=== PATIENT | female | born 1950 | race Caucasian/White ===

== ENCOUNTER 2017-05-17 09:44 | Emergency (ER) | payer OTHER ==
--- NOTE | 2017-05-17 11:24 | ED Physician Documentation ---
PD HPI Fall - Stated complaint Stated Complaint: GLF - Chief complaint Chief Complaint: General - History obtained from History obtained from: Patient - History of Present Illness Mechanism of injury: Tripped Fall distance: Standing position Where injury occurred: Home Timing - onset: Today Injury(ies) location: Head, Neck, Right Upper Extremity, Right Lower Extremity, Left Lower Extremity Quality of pain: Pain Associated symptoms: Neck pain. No: LOC, AMS, Amnesia, Seizures, Ear drainage, Nasal drainage, Weakness, Paresthesias, Dyspnea, Nausea / vomiting, Hematemesis Symptoms improve with: Rest Worsens with: Movement, Palpation Contributing factors: No: Anticoagulated Similar symptoms before: Has not had sx before Recently seen: Not recently seen - Additional information Additional information: 66-year-old female with history of rheumatoid arthritis was walking in her driveway where they are installing some pavers in sand. She stepped on 1 of these pavers and lost her balance shooting herself forward and she landed with her head up against a step she abraded her knees she braced her fall with her outstretched hands and now complains of pain in the vertex of the head and in the right side of her neck. Pain goes from the neck into the right shoulder she has abrasions to the knees and does not feel the shoulder itself is injured. Review of Systems Constitutional: denies: Fever Eyes: denies: Loss of vision, Decreased vision, Photophobia Ears: denies: Ear pain Nose: denies: Rhinorrhea / runny nose, Congestion Throat: denies: Sore throat Cardiac: denies: Chest pain / pressure, Palpitations Respiratory: denies: Dyspnea, Cough GI: denies: Abdominal Pain, Nausea, Vomiting : denies: Dysuria, Frequency Skin: reports: Abrasion (s). denies: Rash Musculoskeletal: reports: Neck pain, Extremity pain, Extremity swelling. 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: Other : Kidney stones Psych: Anxiety Musculoskeletal: Rheumatoid arthritis Other Past Medical History: "fatty liver" "liver cyst" - Past Surgical History Past Surgical History: Yes /PASSENGER VESSEL CHEF: Dilation and currettage - Present Medications Home Medications: Ambulatory Orders Medication Instructions Recorded Confirmed Albuterol Sulfate [Proventil Hfa 1 puffs INH DAILY PRN 04/06/16 04/06/16 Inhaler] Adalimumab [Humira] 10 mg ORAL ONCE 05/17/17 05/17/17 Cyclobenzaprine [Flexeril] 10 mg PO TID PRN #20 tablet 05/17/17 HYDROcod/ACETAM 5/325 [[place] 5/325] 1 - 2 ea PO Q6H PRN #15 tablet 05/17/17 Prednisone 10 mg ORAL [id number] 05/17/17 05/17/17 azaTHIOprine [Imuran] 50 mg ORAL BID 05/17/17 05/17/17 - Allergies Allergies/Adverse Reactions: Allergies Allergy/AdvReac Type Severity Reaction Status Date / Time Penicillins Allergy Hives Verified 04/06/16 19:51 - Social History Does the pt smoke?: No Smoking Status: Never smoker Does the pt drink ETOH?: No Does the pt have substance abuse?: No - Immunizations Immunizations are current?: Yes - POLST Patient has POLST: No PD ED PE NORMAL - Vitals Vital signs reviewed: Yes (Tachycardic and hypertensive) - General General: Alert and oriented X 3, No acute distress, Well developed/nourished - HEENT HEENT: Atraumatic, PERRL, EOMI - Neck Neck: Supple, no meningeal sign, Other (The patient has pain along the right paraspinous muscles and does not have midline pain to the cervical spine. She is able flex and extend the neck she has pain to rotate the neck to the right. Pain extends from C2 to the supraspinatus.) - Cardiac Cardiac: RRR, No murmur - Respiratory Respiratory: No respiratory distress, Clear bilaterally - Abdomen Abdomen: Soft, Non tender - Back Back: No CVA TTP, No spinal TTP Results - Vitals Vitals: Vital Signs - 24 hr 05/17/17 05/17/17 09:52 11:59 Temperature 37 C Heart Rate 110 H 102 H Respiratory 18 16 Rate Blood Pressure 149/84 H 159/101 H O2 Saturation 99 96 Oxygen O2 Source Room air - Rads (name of study) cervical spine Radiology: Prelim report reviewed (Impression: 1. No acute cervical spine fracture or spondylolisthesis identified. Straightening of cervical lordosis.2. Multilevel degenerative changes most notably at C5-C6 and C6-C7. Additionally, there is bony fusion at the right-sided C4-C5 facet.3. Partially visualized lung apices with small amount of irregular linear opacity, which may represent scarring.), EMP read indepedently, See rad report PD MEDICAL DECISION MAKING - ED course Complexity details: reviewed old records, reviewed results, re-evaluated patient , considered differential, d/w patient ED course: 66-year-old female with a history of rheumatoid arthritis is fallen and struck the top of her head and strained her neck. She is abraded her knees as well but is able to walk without difficulty and has a normal exam of the knees. Departure - Departure Disposition: 01 Home, Self Care Clinical Impression: Cervical strain, acute Qualifiers: Encounter type: initial encounter Qualified Code(s): S16.1XXA - Strain of muscle, fascia and tendon at neck level, initial encounter Condition: Stable Instructions: ED Sprain Strain Neck Follow-Up: NICOLE VELÁZQUEZ [Primary Care Provider] - Prescriptions: Cyclobenzaprine [Flexeril] 10 mg PO TID PRN #20 tablet PRN Reason: Spasms HYDROcod/ACETAM 5/325 [[place] 5/325] 1 - 2 ea PO Q6H PRN #15 tablet PRN Reason: Pain
[2017-05-17 12:00] VITALS: BP 159/101
--- NOTE | 2017-05-17 12:14 | CT Preliminary Report ---
Exam: CT Cervical Spine W/O IMPRESSION: 1. No acute cervical spine fracture or spondylolisthesis identified. Straightening of the cervical lo rdosis. 2. Multilevel degenerative changes, most notably at C5-C6 and C6-C7. Additionally, there is bony fusi on at the right-sided C4-C5 facet. 3. Partially visualized lung apices with small amount of irregular linear opacity, which may reflect scarring. [facility] SITE ID: [id number]
--- NOTE | 2017-05-17 12:17 | CT Report ---
EXAM: CT CERVICAL SPINE WITHOUT CONTRAST DATE: 05/17/2017 11:54 AM HISTORY: Fall vertex contusion right sided pain . COMPARISONS: None. TECHNIQUE: Thin-section axial images were acquired of the cervical spine without contrast. Post-proce ssing: Coronal and sagittal reformats. Other: None. In accordance with CT protocol optimization, one or more of the following dose reduction techniques w ere utilized for this exam: automated exposure control, adjustment of mA and/or KV based on patient s ize, or use of iterative reconstructive technique. FINDINGS: Alignment: Straightening of the cervical lordosis. No spondylolisthesis. Bones: No acute fracture or focal osseous destruction identified. Interspace Levels/Facets: Multilevel degenerative change, including disk space narrowing, endplate sclerosis and small osteophy te formation. This is most prominent at C5-C6 and C6-C7. Mild multilevel facet arthropathy. Additiona lly, bony fusion at the right-sided C4-C5 facet. Musculature: No fatty atrophy. Other: No prevertebral soft tissue swelling. The lung apices contain some mildly irregular linear opa city, which may represent scarring. IMPRESSION: 1. No acute cervical spine fracture or spondylolisthesis identified. Straightening of the cervical lo rdosis. 2. Multilevel degenerative changes, most notably at C5-C6 and C6-C7. Additionally, there is bony fusi on at the right-sided C4-C5 facet. 3. Partially visualized lung apices with small amount of irregular linear opacity, which may reflect scarring. [facility] Referring Provider Line: [phone] SITE ID: [id number]
== END 2017-05-17 13:04 | disposition home or self-care (01) ==
LOC: ED 09:44
DX: S16.1XXA Strain of muscle, fascia and tendon at neck level, initial encounter (principal); S80.212A Abrasion, left knee, initial encounter; S80.211A Abrasion, right knee, initial encounter; W01.0XXA Fall on same level from slipping, tripping and stumbling without subsequent striking against object, initial encounter; Y93.01 Activity, walking, marching and hiking; Y92.89 Other specified places as the place of occurrence of the external cause; M06.9 Rheumatoid arthritis, unspecified; Z98.1 Arthrodesis status
CPT/HCPCS: 72125; 99283; 99284

== ENCOUNTER 2017-07-12 12:50 | Outpatient (CLI) | payer OTHER | END 2017-07-12 12:51 | disposition home or self-care (01) | LOC: DI 12:50 | PROVIDERS: ATTEND Family Medicine | DX: R60.9 Edema, unspecified (principal); I10 Essential (primary) hypertension; M06.9 Rheumatoid arthritis, unspecified | CPT/HCPCS: 93306 ==

== ENCOUNTER 2017-10-17 16:53 | Emergency (ER) | payer MEDICARE, OTHER ==
--- NOTE | 2017-10-17 18:18 | ED Physician Documentation ---
History of Present Illness - Stated complaint Stated Complaint: HEADACHE/SYNCOPE - Chief complaint Chief Complaint: Neuro - History obtained from History obtained from: Patient, Family - History of Present Illness Timing: Today Pain level max: 0 Pain level now: 0 Improved by: nothing Worsened by: nothing - Additonal information Additional information: Patient is a 67-year-old female who states that she felt like ideas were running through her head earlier today while she was using the restroom having a bowel movement. No syncope or near syncope. No chest pain, no palpitations. No changes in her medications. No focal weakness or numbness. No difficulty with speech or vision. Now feels normal. 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 : Kidney stones Psych: Anxiety Musculoskeletal: Rheumatoid arthritis - Past Surgical History Past Surgical History: Yes /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: 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 and currettage - Present Medications Home Medications: Ambulatory Orders Medication Instructions Recorded Confirmed Albuterol Sulfate [Proventil Hfa 1 puffs INH DAILY PRN 04/06/16 10/17/17 Inhaler] Adalimumab [Humira] 10 mg ORAL ONCE 05/17/17 10/17/17 Cyclobenzaprine [Flexeril] 10 mg PO TID PRN #20 tablet 05/17/17 10/17/17 HYDROcod/ACETAM 5/325 [[place] 5/325] 1 - 2 ea PO Q6H PRN #15 tablet 05/17/17 azaTHIOprine [Imuran] 50 mg ORAL BID 05/17/17 10/17/17 predniSONE [Prednisone] 10 mg ORAL [id number] 05/17/17 10/17/17 - Allergies Allergies/Adverse Reactions: Allergies Allergy/AdvReac Type Severity Reaction Status Date / Time Penicillins Allergy Hives Verified 04/06/16 19:51 - Social History Does the pt smoke?: No Smoking Status: Never smoker Does the pt drink ETOH?: No Does the pt have substance abuse?: No - Immunizations Immunizations are current?: Yes - POLST Patient has POLST: No PD ED PE NORMAL - Vitals Vital signs reviewed: Yes - General General: Alert and oriented X 3, No acute distress, Well developed/nourished - HEENT HEENT: Atraumatic, PERRL, Ears normal, Moist mucous membranes, Pharynx benign - Neck Neck: Supple, no meningeal sign - Cardiac Cardiac: RRR, Strong equal pulses - Respiratory Respiratory: No respiratory distress, Clear bilaterally - Abdomen Abdomen: Soft, Non tender, Non distended - Back Back: No spinal TTP - Derm Derm: Warm and dry - Extremities Extremities: Normal ROM s pain - Neuro Neuro: Alert and oriented X 3, 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, No motor deficit, No sensory deficit, Normal speech, Other (NIHSS 0, normal cerebellar tests) Eye Opening: Spontaneous Motor: Obeys Commands Verbal: Oriented GCS Score: 15 - Psych Psych: Normal mood, Normal affect Results - Vitals Vitals: Vital Signs - 24 hr 10/17/17 10/17/17 17:09 20:19 Temperature 35.5 C L Heart Rate 110 H 94 Respiratory 20 18 Rate Blood Pressure 147/103 H 165/86 H O2 Saturation 100 100 Oxygen O2 Source Room air - EKG (time done) 1722 Rate: Rate (enter#) (109) Rhythm: Sinus tachycardia [place]: Normal Intervals: Normal LA QRS: Normal Ischemia: Normal ST segments - Labs Labs: Laboratory Tests 10/17/17 10/17/17 10/17/17 18:30 18:30 19:15 WBC 4.4 L RBC 4.50 Hgb 13.3 Hct 41.4 MCV 92.1 MCH 29.5 MCHC 32.0 RDW 13.8 Plt Count 342 MPV 6.8 L Neut # 3.5 Lymph # 0.5 L [place] # 0.4 Eos # 0.1 Baso # 0.0 Absolute Nucleated RBC 0.01 Nucleated RBC % 0.2 Sodium 135 Potassium 4.1 Chloride 100 L Carbon Dioxide 26 Anion Gap 9.0 BUN 11 Creatinine 0.7 Estimated GFR (MDRD) 84 L Glucose 97 Calcium 9.3 Total Bilirubin 0.4 AST 102 H ALT 114 H Alkaline Phosphatase 62 Total Protein 7.6 Albumin 3.9 Globulin 3.7 Albumin/Globulin Ratio 1.1 Lipase 33 Urine Color YELLOW Urine Clarity CLEAR Urine pH 6.5 Ur Specific [place] <=1.005 Urine Protein NEGATIVE Urine Glucose (UA) NEGATIVE Urine Ketones NEGATIVE Urine Occult Blood TRACE-INTA Urine Nitrite NEGATIVE Urine Bilirubin NEGATIVE Urine Urobilinogen 0.2 (NORMAL) Ur Leukocyte Esterase NEGATIVE Ur Microscopic Review NOT INDICATED Urine Culture Comments NOT INDICATED PD MEDICAL DECISION MAKING - ED course Complexity details: reviewed results, re-evaluated patient, considered differential, d/w patient ED course: Patient is a jeanine 67-year-old female who presents to the emergency department with transient flight of ideas earlier today. Asymptomatic in the emergency department. No focal neurological deficits. No evidence of stroke or TIA. No acute laboratory abnormalities. She states that she did not sleep well last night and only slept for approximately 2-3 hours. Possible that she is overtired? Will have her follow-up with her doctor for further evaluation and care. Patient counseled regarding signs and symptoms for which I believe and urgent re-evaluation would be necessary. Patient with good understanding of and agreement to plan and is comfortable going home at this time This document was made in part using voice recognition software. While efforts are made to proofread this document, sound alike and grammatical errors may occur. Departure - Departure Disposition: 01 Home, Self Care Clinical Impression: Altered mental status Qualifiers: Altered mental status type: transient alteration of awareness Qualified Code(s) : R40.4 - Transient alteration of awareness Condition: Good Instructions: ED Altered Loc Follow-Up: NICOLE VELÁZQUEZ [Primary Care Provider] - Within 1 week Comments: The cause of your symptoms is unclear today. Return if you worsen. Continue your medications at home. Your liver function tests were slightly high today and this may be due to the Imuran you are taking, consult your doctor to see if you should continue taking this or change your dose. Discharge Date/Time: 10/17/17 20:32
[2017-10-17 18:46] LABS: BASOPHILS % (AUTO) 0.6 %; EOSINOPHILS # (AUTO) 0.1 10^3/uL (0.0-0.7); EOSINOPHILS % (AUTO) 1.9 %; HGB - HEMOGLOBIN 13.3 g/dL (12.0-16.0); LYMPHOCYTES # (AUTO) 0.5 10^3/uL (1.5-3.5); LYMPHOCYTES % (AUTO) 11.1 %; MEAN CORPUSCULAR HEMOGLOBIN 29.5 pg (27.0-31.0); MEAN CORPUSCULAR VOLUME 92.1 fL (81.0-99.0); MEAN PLATELET VOLUME 6.8 fL (7.9-10.8); MONOCYTES # (AUTO) 0.4 10^3/uL (0.0-1.0); MONOCYTES % (AUTO) 8.5 %; NEUTROPHILS # (AUTO) 3.5 10^3/uL (1.5-6.6); NEUTROPHILS % (AUTO) 77.9 %; PLT - PLATELET COUNT 342 10^3/uL (130-450); RED CELL DISTRIBUTION WIDTH 13.8 % (12.0-15.0); WHITE BLOOD COUNT 4.4 x10^3/uL (4.8-10.8)
[2017-10-17 18:58] LABS: ALBUMIN 3.9 g/dL (3.2-5.5); ALBUMIN/GLOBULIN RATIO 1.1 (1.0-2.2); BILIRUBIN,TOTAL 0.4 mg/dL (0.2-1.0); CALCIUM 9.3 mg/dL (8.5-10.3); CREATININE 0.7 mg/dL (0.4-1.0); TOTAL PROTEIN 7.6 g/dL (6.7-8.2)
[2017-10-17 19:26] LABS: BILIRUBIN,URINE NEGATIVE (NEGATIVE); CLARITY,URINE CLEAR (CLEAR); GLUCOSE, URINE (UA) NEGATIVE (NEGATIVE); KETONES,URINE (UA) NEGATIVE (NEGATIVE); LEUKOCYTE ESTERASE, URINE NEGATIVE (NEGATIVE); NITRITE,URINE NEGATIVE (NEGATIVE); OCCULT BLOOD,URINE TRACE-INTA (NEGATIVE); PH,URINE 6.5 PH (5.0-7.5); PROTEIN,URINE NEGATIVE (NEGATIVE); UROBILINOGEN,URINE 0.2 (NORMAL) E.U./dL (NORMAL)
[2017-10-17 20:20] VITALS: BP 165/86
== END 2017-10-17 20:32 | disposition home or self-care (01) ==
LOC: ED 16:53
DX: R40.4 Transient alteration of awareness (principal); M06.9 Rheumatoid arthritis, unspecified
CPT/HCPCS: 36415; 80053; 81001; 81003; 83690; 85025; 87086; 93005; 99283; 99284

== ENCOUNTER 2018-08-16 19:22 | Emergency (ER) | payer MEDICARE, OTHER ==
--- NOTE | 2018-08-16 20:09 | ED Physician Documentation ---
History of Present Illness - Stated complaint Stated Complaint: FEVER - Chief complaint Chief Complaint: General - History obtained from History obtained from: Patient - History of Present Illness Timing: Yesterday Pain level now: 7 Improved by: ibuprofen Worsened by: no exacerbating factors, but feels worse when fevers present - Additonal information Additional information: yesterday, developed chills and fever Tmax 100.4. Took ibuprofen twice in overnight period and felt better by morning. However, she again developed chills, myalgias, and thus went to an urgent care for evaluation, was told she likely had influenza and was rx Tamiflu. She continued to take Ibuprofen which provided relief for a few hours at a time. She was told to come to ED if she spiked another fever, and tonight she had fever 100.3 and thus comes to ED for evaluation. 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 : Kidney stones Psych: Anxiety Musculoskeletal: Rheumatoid arthritis - Past Surgical History Past Surgical History: Yes /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: Dilation and currettage - Present Medications Home Medications: Ambulatory Orders Medication Instructions Recorded Confirmed Albuterol Sulfate [Proventil Hfa 1 puffs INH DAILY PRN 04/06/16 08/16/18 Inhaler] Adalimumab [Humira] 10 mg ORAL ONCE 05/17/17 08/16/18 Ibuprofen [Ibu] 800 mg PO 08/16/18 Lisinopril 20 mg PO DAILY 08/16/18 08/16/18 Omeprazole Magnesium [Prilosec] 20 mg PO DAILY 08/16/18 08/16/18 Oseltamivir [Tamiflu] 75 mg PO BID 08/16/18 08/16/18 Salmeterol Xinafoate [Serevent 50 mcg INH BID 08/16/18 08/16/18 Diskus] - Allergies Allergies/Adverse Reactions: Allergies Allergy/AdvReac Type Severity Reaction Status Date / Time Penicillins Allergy Hives Verified 08/16/18 19:40 - Social History Does the pt smoke?: No Smoking Status: Never smoker Does the pt drink ETOH?: No Does the pt have substance abuse?: No - Immunizations Immunizations are current?: Yes - POLST Patient has POLST: No PD ED PE NORMAL - Vitals Vital signs reviewed: Yes - General General: Alert and oriented X 3, No acute distress, Well developed/nourished - HEENT HEENT: Moist mucous membranes - Neck Neck: Supple, no meningeal sign - Cardiac Cardiac: No murmur - Respiratory Respiratory: No respiratory distress, Clear bilaterally - Abdomen Abdomen: Soft, Non tender - Derm Derm: Other (mild patchy erythema with indistinct margins on midline lower neck and midline upper chest. there are also 2 darker erythematous round patches, approximately 1.5cm diameter with indistinct margins, right upper chest) - Extremities Extremities: No edema - Neuro Neuro: Alert and oriented X 3 PD ED PE EXPANDED - HEENT HEENT: Pharyngeal erythema (mild), Tonsillar exudate (right) - Cardiac Cardiac: Tachy, Regular Rhythm Results - Vitals Vitals: Vital Signs - 24 hr 08/16/18 08/16/18 08/16/18 19:34 20:28 22:00 Temperature 38.2 C H 38.8 C H 37.4 C Heart Rate 144 H 125 H Respiratory 16 15 Rate Blood Pressure 152/75 H O2 Saturation 97 94 08/17/18 00:10 Temperature 36.6 C Heart Rate 101 H Respiratory 16 Rate Blood Pressure 114/70 O2 Saturation 96 Oxygen O2 Source Room air - Labs Labs: Laboratory Tests 08/16/18 08/16/18 20:05 21:30 Influenza A (Rapid) Negative Influenza B (Rapid) Negative Group A Strep Rapid Negative - Rads (name of study) chest xray Radiology: Prelim report reviewed, See rad report PD MEDICAL DECISION MAKING - ED course Complexity details: reviewed results, re-evaluated patient, considered landen page, d/w patient Departure - Departure Disposition: 01 Home, Self Care Clinical Impression: Viral syndrome Condition: Good Instructions: ED Viral Syndrome Follow-Up: NICOLE VELÁZQUEZ [Primary Care Provider] - Within 3 Days Discharge Date/Time: 08/17/18 00:12
[2018-08-16] MEDS ORDERED: ACETAMINOPHEN 325 MG TABLET PO STA (20:28)
[2018-08-16] MEDS ORDERED: SODIUM CHLORIDE 0.9% 1,000 ML IV STA (21:05)
--- NOTE | 2018-08-16 21:30 | XRAY Report ---
Reason: cough, fever Procedure Date: 08/16/2018 Accession Number: [id number] / [id number] Procedure: XR - Chest 2 View X-Ray CPT Code: 26852 FULL RESULT: EXAM: CHEST RADIOGRAPHY EXAM DATE: 08/16/2018 09:22 PM. CLINICAL HISTORY: Cough, fever. COMPARISON: None. TECHNIQUE: 2 views. FINDINGS: Lungs/Pleura: No focal opacities evident. No pleural effusion. No pneumothorax. Normal volumes. Mediastinum: Heart and mediastinal contours are unremarkable. Other: None. IMPRESSION: Normal 2-view chest radiography. [facility]
[2018-08-17 00:12] VITALS: BP 114/70
== END 2018-08-17 00:12 | disposition home or self-care (01) ==
LOC: ED 19:22
DX: B34.9 Viral infection, unspecified (principal); L53.9 Erythematous condition, unspecified; Z87.01 Personal history of pneumonia (recurrent)
CPT/HCPCS: 71046; 87070; 87275; 87276; 87430; 96360; 96361; 99282; 99283; A9270

== ENCOUNTER 2019-08-21 08:49 | Outpatient (CLI) | payer MEDICARE, OTHER ==
[~2019-08-21 08:49] MED LIST: ALBUTEROL NEB 2.5 MG/3 ML INH SCH
--- NOTE | 2019-08-21 10:10 | DEXA Report ---
Reason: WHEEZING, SCREEING FOR OSTEOPOROSIS DUE TO MENOPAU Procedure Date: 08/21/2019 Accession Number: [id number] / [id number] Procedure: DEX - Dexa Spine and/or Hip CPT Code: Final Report FULL RESULT: EXAM: Dexa Spine and/or Hip DATE: 08/21/2019 9:19 AM CLINICAL HISTORY: WHEEZING, SCREENING FOR OSTEOPOROSIS DUE TO MENOPAUSE TECHNIQUE: Dual energy x-ray absorptiometry (DXA) was performed on a [employer] System. Regions measured are the AP Spine, femoral neck, and if needed forearm. COMPARISON: None. In accordance with the International Society for Clinical Densitometry (ISCD) guidelines, data from previous exams may be reanalyzed using current recommendations and techniques. This is done to allow a more accurate basis for comparison with the current study. FINDINGS: The data for the lumbar spine is as follows: BMD (g/cm/cm) T-SCORE Z-SCORE REGION L1 1.192 0.5 1.0 L2 1.180 -0.2 0.3 L3 1.222 0.2 0.6 L4 1.164 -0.3 0.2 TOTAL 1.189 0.1 0.5 NOTE: All evaluable vertebrae are used for classification The data for the hip is as follows: BMD (g/cm/cm) T-SCORE Z-SCORE REGION Neck 0.846 -1.4 -0.6 TOTAL 0.946 -0.5 0.0 NOTE: The femoral neck or total proximal femur, whichever is lowest, is used for classification. IMPRESSION: THE WHO CLASSIFICATION BASED ON THE INTERNATIONAL REFERENCE STANDARD IS OSTEOPENIA. THE FRACTURE RISK IS INCREASED. RECOMMENDATION: Patients with diagnosis of osteoporosis or osteopenia should have regular bone mineral density assessment. For those eligible for Medicare, routine testing is allowed once every 2 years. Testing frequency can be increased for patients who have rapidly progressing disease or for those who are receiving medical therapy to restore bone mass. COMMENT: World Health Organization (WHO) definitions for osteoporosis and osteopenia: NORMAL BMD: T-score at -1.0 or higher, fracture risk is low OSTEOPENIA BMD: T-score between -1.0 and -2.5, fracture risk is increased. OSTEOPOROSIS BMD: T-score at -2.5 or lower, fracture risk is high. National Osteoporosis Foundation recommends: 1. Obtain adequate dietary calcium (at least 1200 mg per day) and vitamin D (400-800 international units per day). 2. Participate, as appropriate, in regular weightbearing and muscle-strengthening exercise. 3. Avoid tobacco use and reduce alcohol and caffeine intake. 4. For more detailed information see the website at www.NOF.org.
[2019-08-21] MEDS ORDERED: ALBUTEROL NEB 2.5 MG/3 ML INH ONE (11:00)
== END 2019-08-21 08:50 | disposition home or self-care (01) ==
LOC: DI 08:49
PROVIDERS: ATTEND Internal Medicine
DX: Z13.820 Encounter for screening for osteoporosis (principal); M85.88 Other specified disorders of bone density and structure, other site; R06.2 Wheezing; Z78.0 Asymptomatic menopausal state
CPT/HCPCS: 77080; 94060

== ENCOUNTER 2022-06-13 19:48 | Emergency (ER) | payer MEDICARE, OTHER ==
[2022-06-13 20:12] LABS: BASOPHILS % (AUTO) 0.4 %; HCT - HEMATOCRIT 40.1 % (37.0-47.0); HGB - HEMOGLOBIN 12.9 g/dL (12.0-16.0); LYMPHOCYTES % (AUTO) 26.2 %; MEAN CORPUSCULAR HEMOGLOBIN 29.4 pg (27.0-31.0); MEAN CORPUSCULAR HGB CONC 32.2 g/dL (32.0-36.0); MEAN CORPUSCULAR VOLUME 91.3 fL (81.0-99.0); MEAN PLATELET VOLUME 8.6 fL (7.9-10.8); MONOCYTES % (AUTO) 1.7 %; NEUTROPHILS % (AUTO) 67.5 %; PLT - PLATELET COUNT 245 10^3/uL (130-450); RED BLOOD COUNT 4.39 10^6/uL (4.20-5.40); RED CELL DISTRIBUTION WIDTH 13.2 % (12.0-15.0); WHITE BLOOD COUNT 5.3 x10^3/uL (4.8-10.8)
--- NOTE | 2022-06-13 20:12 | ED Physician Documentation ---
History of Present Illness - Stated complaint Stated Complaint: OVERDOSE - Chief complaint Chief Complaint: General - History obtained from History obtained from: Patient - Additonal information Additional information: 71-year-old woman with history of rheumatoid arthritis restarted methotrexate on June. It was an old prescription and she forgot that it was weekly and instead has been taking it daily. She realized her error today and called poison control and they referred her to the emergency department. She is feeling anxious about the mixup but otherwise fine, some epigastric discomfort. Review of Systems Ten Systems: 10 systems reviewed and negative Constitutional: denies: Fever, Chills, Myalgias, Fatigue Cardiac: denies: Chest pain / pressure, Palpitations Respiratory: denies: Dyspnea, Cough PD PAST MEDICAL HISTORY - Past Medical History Past Medical History: Yes Respiratory: Pneumonia GI: Other [employer]: Other : Kidney stones Psych: Anxiety Musculoskeletal: Rheumatoid arthritis - Past Surgical History Past Surgical History: Yes /[employer]: Dilation and currettage - Present Medications Home Medications: Ambulatory Orders Medication Instructions Recorded Confirmed Albuterol Sulfate [Proventil Hfa 1 puffs INH DAILY PRN 04/06/16 08/16/18 Inhaler] Adalimumab [Humira] 10 mg ORAL ONCE 05/17/17 08/16/18 Ibuprofen [Ibu] 800 mg PO 08/16/18 Omeprazole Magnesium [Prilosec] 20 mg PO DAILY 08/16/18 08/16/18 Oseltamivir [Tamiflu] 75 mg PO BID 08/16/18 08/16/18 Salmeterol Xinafoate [Serevent 50 mcg INH BID 08/16/18 08/16/18 Diskus] lisinopriL [Lisinopril] 20 mg PO DAILY 08/16/18 08/16/18 - Allergies Allergies/Adverse Reactions: Allergies Allergy/AdvReac Type Severity Reaction Status Date / Time Penicillins Allergy Hives Verified 08/16/18 19:40 - Social History Does the pt smoke?: No Smoking Status: Never smoker Does the pt drink ETOH?: No Does the pt have substance abuse?: No - Immunizations Immunizations are current?: Yes - POLST Patient has POLST: No PD ED PE NORMAL - Vitals Vital signs reviewed: Yes - General General: Alert and oriented X 3, No acute distress - Abdomen Abdomen: Normal bowel sounds, Soft, Non tender - Derm Derm: Normal color, Warm and dry - Extremities Extremities: No edema, No calf tenderness / cord - Neuro Neuro: Alert and oriented X 3, Normal speech Results - Vitals Vitals: Vital Signs - 24 hr 06/13/22 06/13/22 19:56 20:45 Temperature 36.5 C 36.5 C Heart Rate 102 H 79 Respiratory 20 19 Rate Blood Pressure 180/96 H 155/88 H O2 Saturation 99 99 Oxygen O2 Source Room air - Labs Labs: Laboratory Tests 06/13/22 06/13/22 20:06 20:06 WBC 5.3 RBC 4.39 Hgb 12.9 Hct 40.1 MCV 91.3 MCH 29.4 MCHC 32.2 RDW 13.2 Plt Count 245 MPV 8.6 Neut # (Auto) Not Reportable Lymph # (Auto) Not Reportable [place] # (Auto) Not Reportable Eos # (Auto) Not Reportable Baso # (Auto) Not Reportable Absolute Nucleated RBC Not Reportable Total Counted 100 Band Neuts % (Manual) 0 Reactive Lymphs % (Man) 6 Abnorm Lymph % (Manual) 0 Nucleated RBC % Not Reportable Neutrophils # (Manual) 3.8 Lymphocytes # (Manual) 1.2 L Monocytes # (Manual) 0.1 Eosinophils # (Manual) 0.3 Basophils # (Manual) 0.0 Differential Comment MANUAL DIFFERENTIAL WBC Morphology NORMAL APPEARANCE Platelet Estimate NORMAL (130-450,000) Platelet Morphology NORMAL APPEARANCE RBC Morph Micro Appear NORMAL APPEARANCE Sodium 140 Potassium 3.8 Chloride 103 Carbon Dioxide 30 Anion Gap 7.0 BUN 17 Creatinine 0.7 Estimated GFR (MDRD) 83 L Glucose 110 H Calcium 10.1 Total Bilirubin 0.8 AST 46 H ALT 47 Alkaline Phosphatase 69 Total Protein 7.8 Albumin 4.6 Globulin 3.2 Albumin/Globulin Ratio 1.4 PD MEDICAL DECISION MAKING - ED course ED course: 71-year-old woman took an accidental overdose of methotrexate, taking it daily instead of weekly. Poison control called ahead of time and recommended a CBC and CMP to screen for liver, kidney, and bone marrow dysfunction. If no sign of that she could be discharged home. If significant abnormalities we would call back for reconsultation. I called them back with a minimal elevation in her transaminases, and they did not feel this required further intervention and she could be safely discharged to hold the methotrexate. Departure - Departure Disposition: 01 Home, Self Care Clinical Impression: Methotrexate overdose of undetermined intent Qualifiers: Encounter type: initial encounter Qualified Code(s): T45.1X4A - Poisoning by a ntineoplastic and immunosuppressive drugs, undetermined, initial encounter Condition: Good Instructions: ED Overdose Accidental Comments: Stop methotrexate for now, until you talk with your prescriber Discharge Date/Time: 06/13/22 20:45
[2022-06-13 20:18] LABS: ABNORMAL LYMPHS % (MANUAL) 0 %; BAND NEUTROPHILS % (MANUAL) 0 %
[2022-06-13 20:23] LABS: ALBUMIN 4.6 g/dL (3.2-5.5); ALBUMIN/GLOBULIN RATIO 1.4 (1.0-2.2); BILIRUBIN,TOTAL 0.8 mg/dL (0.2-1.0); CALCIUM 10.1 mg/dL (8.5-10.3); CREATININE 0.7 mg/dL (0.4-1.0); POTASSIUM 3.8 mmol/L (3.5-5.0); TOTAL PROTEIN 7.8 g/dL (6.7-8.2)
--- OUTSIDE RECORDS SUMMARY | 2022-06-13 20:32 | EXTERNAL MEDICAL SUMMARY RPT | Continuity of Care Document ---
:1950 Author Organization [place] Address [address] [place] [address] Phone Allergies No information. Encounters No information. Functional Status No information. Immunizations No information. Medications No information. Problems No information. Procedures date description facility +0000 Diagnosis [facility] [id number] [facility] +0000 General Physician [facility] Results/Labs test date author facility value unit interpret ation Result panel 1 (unknown) (no (unknown) (unknown) (no value) (units (unk nown) date) unknown) (unknown) (no (unknown) (unknown) (no value) (units (unk nown) date) unknown) (unknown) (no (unknown) (unknown) [facility] (units (unknown) date) Medicine unknown) (unknown) (no (unknown) (unknown) [place] [address] (unit s (unknown) date) unknown) (unknown) (no (unknown) (unknown) [facility] (units (unkno wn) date) unknown) (unknown) (no (unknown) (unknown) [facility] (units (unknown) date) Office Visit unknown) (unknown) (no (unknown) (unknown) (no value) (units (unk nown) date) unknown) (unknown) (no (unknown) (unknown) [id number] (units (unk nown) date) unknown) (unknown) (no (unknown) (unknown) 04/10/22 (units (unkno wn) date) unknown) (unknown) (no (unknown) (unknown) 06/21/20 [Rx (units (u nknown) date) Confirmed 04/10/22] unknown) (unknown) (no (unknown) (unknown) 1556 (units (unkno wn) date) unknown) (unknown) (no (unknown) (unknown) Age/Sex: 71 / F (units (unknown) date) Date of Service: unknown) (unknown) (no (unknown) (unknown) Allergies (units (unkn own) date) unknown) (unknown) (no (unknown) (unknown) Attending Dr: Yael (unit s (unknown) date) Yuli Graff P.A-C unknown) (unknown) (no (unknown) (unknown) Confirmed 04/10/22] (unit s (unknown) date) unknown) (unknown) (no (unknown) (unknown) Coughing for (units (u nknown) date) several days, h/o unknown) asthma. Deep cough starting yesterday. Just (unknown) (no (unknown) (unknown) : 1950 (units (unknown) date) Acct:[id number] unknown) (unknown) (no (unknown) (unknown) Dept at (units (unkno wn) date) . unknown) (unknown) (no (unknown) (unknown) Documented By: (units (unknown) date) Yael Graff unknownKimi Maya 04/10/22 (unknown) (no (unknown) (unknown) Intake (units (unkno wn) date) unknown) (unknown) (no (unknown) (unknown) Intake Note: (units (u nknown) date) unknown) (unknown) (no (unknown) (unknown) Intake performed (units (unknown) date) by: Alona Damon unknown) (unknown) (no (unknown) (unknown) Intake- Clincial (units (unknown) date) Staff unknown) (unknown) (no (unknown) (unknown) Last Menstural (units (unknown) date) Cycle + Details unknown) (unknown) (no (unknown) (unknown) Loc: [facility] (units (unkno wn) date) unknown) (unknown) (no (unknown) (unknown) Medications (units (un known) date) unknown) (unknown) (no (unknown) (unknown) Other Menstrual (units (unknown) date) Period: unknown) Postmenopausal (unknown) (no (unknown) (unknown) PFSH (units (unkno wn) date) unknown) (unknown) (no (unknown) (unknown) Patient: (units (unkno wn) date) Bebe Bowman unknown) MR#: (unknown) (no (unknown) (unknown) Penicillins Allergy (unit s (unknown) date) (Verified 04/10/22 unknown) 16:00) (unknown) (no (unknown) (unknown) Reason For Visit (units (unknown) date) unknown) (unknown) (no (unknown) (unknown) Signed By: (units (unk nown) date) unknown) (unknown) (no (unknown) (unknown) Smoking Status: (units (unknown) date) Never smoker unknown) (unknown) (no (unknown) (unknown) This note may have (units (unknown) date) been all or unknown) partially generated using voice recognition (unknown) (no (unknown) (unknown) Tobacco + Substance (unit s (unknown) date) Use unknown) (unknown) (no (unknown) (unknown) Tobacco Status (units (unknown) date) unknown) (unknown) (no (unknown) (unknown) Tylenol 500 mg PO (units (unknown) date) 06/07/20 [History unknown) Confirmed 04/10/22] (unknown) (no (unknown) (unknown) Valtrex 06/07/20 (units (unknown) date) [History Confirmed unknown) 04/10/22] (unknown) (no (unknown) (unknown) Visit Reasons: (units (unknown) date) Cough, chest unknown) congestion x 2D (unknown) (no (unknown) (unknown) arrived home from (units (unknown) date) vacation. 99 temp unknown) today. 3 covid tests over the last few days, (unknown) (no (unknown) (unknown) benzonatate 100 mg (units (unknown) date) capsule (Tessalon unknown) Perles) 100 mg PO TID PRN cough #14 caps (unknown) (no (unknown) (unknown) benzonatate 100 mg (units (unknown) date) capsule 100 mg PO unknown) BID PRN cough #20 caps 11/27/21 [Rx (unknown) (no (unknown) (unknown) clobetasol 0.05 % (units (unknown) date) topical ointment unknown) topical 06/07/20 [History Confirmed 04/10/22] (unknown) (no (unknown) (unknown) cyclosporine 0.05 % (unit s (unknown) date) eye drops in a unknown) dropperette (Restasis) 06/07/20 [History (unknown) (no (unknown) (unknown) difficulty (units (unk nown) date) breathing. unknown) (unknown) (no (unknown) (unknown) have occurred. If (units (unknown) date) there are any unknown) questions, please contact the Medical Records (unknown) (no (unknown) (unknown) hydroxychloroquine (units (unknown) date) 200 mg tablet unknown) 06/07/20 [History Confirmed 04/10/22] (unknown) (no (unknown) (unknown) lisinopril 20 mg (units (unknown) date) tablet 06/07/20 unknown) [History Confirmed 04/10/22] (unknown) (no (unknown) (unknown) listen to her lungs (unit s (unknown) date) due to chronic unknown) illness. Denies shortness of breath, or (unknown) (no (unknown) (unknown) may occur. (units (unk nown) date) Occasional unknown) wrong-word or 'sound-alike' substitutions may have (unknown) (no (unknown) (unknown) minocycline 100 mg (units (unknown) date) capsule 06/07/20 unknown) [History Confirmed 04/10/22] (unknown) (no (unknown) (unknown) negative results. (units (unknown) date) Rheumatoid unknown) arthritis. Is concerned and would like someone to (unknown) (no (unknown) (unknown) occurred due to the (unit s (unknown) date) inherent limitations unknown) of voice recognition software. Please (unknown) (no (unknown) (unknown) omeprazole 20 mg (units (unknown) date) capsule,delayed unknown) release 06/07/20 [History Confirmed 04/10/22] (unknown) (no (unknown) (unknown) prednisone 20 mg (units (unknown) date) tablet 20 mg PO unknown) DAILY #5 tabs 06/21/20 [Rx Confirmed 04/10/22] (unknown) (no (unknown) (unknown) read the note (units ( unknown) date) carefully and unknown) recognize, using context, where these substitutions (unknown) (no (unknown) (unknown) software. Although (units (unknown) date) every effort is made unknown) to edit content, real estate consultant errors (unknown) (no (unknown) (unknown) sulfasalazine 500 (units (unknown) date) mg tablet 06/07/20 unknown) [History Confirmed 04/10/22] Result panel 2 (unknown) (no (unknown) (unknown) (no value) (units (unk nown) date) unknown) (unknown) (no (unknown) (unknown) (no value) (units (unk nown) date) unknown) (unknown) (no (unknown) (unknown) (no value) (units (unk nown) date) unknown) (unknown) (no (unknown) (unknown) 04/10/22 (units (unkno wn) date) unknown) (unknown) (no (unknown) (unknown) 16:18 (units (unkno wn) date) unknown) (unknown) (no (unknown) (unknown) [facility] (units (unknown) date) Medicine unknown) (unknown) (no (unknown) (unknown) [place] [address] (unit s (unknown) date) unknown) (unknown) (no (unknown) (unknown) [facility] (units (unkno wn) date) unknown) (unknown) (no (unknown) (unknown) Family Practice (units (unknown) date) Office Visit unknown) (unknown) (no (unknown) (unknown) (no value) (units (unk nown) date) unknown) (unknown) (no (unknown) (unknown) [id number] (units (unk nown) date) unknown) (unknown) (no (unknown) (unknown) 04/10/22 (units (unkno wn) date) unknown) (unknown) (no (unknown) (unknown) 06/21/20 [Rx (units (u nknown) date) Confirmed 04/10/22] unknown) (unknown) (no (unknown) (unknown) 1556 (units (unkno wn) date) unknown) (unknown) (no (unknown) (unknown) Age/Sex: 71 / F (units (unknown) date) Date of Service: unknown) (unknown) (no (unknown) (unknown) Allergies (units (unkn own) date) unknown) (unknown) (no (unknown) (unknown) Attending Dr: Yael (unit s (unknown) date) Yuli Graff P.A-C unknown) (unknown) (no (unknown) (unknown) BP 139/79 (units (u nknown) date) unknown) (unknown) (no (unknown) (unknown) Blood Pressure (units (unknown) date) Location Lt unknown) radial (unknown) (no (unknown) (unknown) Confirmed 04/10/22] (unit s (unknown) date) unknown) (unknown) (no (unknown) (unknown) : 1950 (units (unknown) date) Acct:[id number] unknown) (unknown) (no (unknown) (unknown) Dept at (units (unkno wn) date) . unknown) (unknown) (no (unknown) (unknown) Documented By: (units (unknown) date) Yael Graff unknown) [place] 04/10/22 (unknown) (no (unknown) (unknown) Intake (units (unkno wn) date) unknown) (unknown) (no (unknown) (unknown) Intake Note: (units (u nknown) date) unknown) (unknown) (no (unknown) (unknown) Intake performed (units (unknown) date) by: Alona Damon unknown) (unknown) (no (unknown) (unknown) Intake- Clincial (units (unknown) date) Staff unknown) (unknown) (no (unknown) (unknown) Just arrived home (units (unknown) date) from vacation. 99 unknown) temp today. 3 covid tests over the last few (unknown) (no (unknown) (unknown) Last Menstural (units (unknown) date) Cycle + Details unknown) (unknown) (no (unknown) (unknown) Loc: [facility] (units (unkno wn) date) unknown) (unknown) (no (unknown) (unknown) Medications (units (un known) date) unknown) (unknown) (no (unknown) (unknown) Other Menstrual (units (unknown) date) Period: unknown) Postmenopausal (unknown) (no (unknown) (unknown) Oxygen Delivery (units (unknown) date) Method room air unknown) (unknown) (no (unknown) (unknown) PFSH (units (unkno wn) date) unknown) (unknown) (no (unknown) (unknown) Patient presents to (unit s (unknown) date) [facility] with concerns unknown) for cough. Patient states she has been (unknown) (no (unknown) (unknown) Patient: (units (unkno wn) date) Bebe Bowman unknown) MR#: (unknown) (no (unknown) (unknown) Penicillins Allergy (unit s (unknown) date) (Verified 04/10/22 unknown) 16:00) (unknown) (no (unknown) (unknown) Position Sitting (unit s (unknown) date) unknown) (unknown) (no (unknown) (unknown) Pulse 106 H (units (unknown) date) unknown) (unknown) (no (unknown) (unknown) Pulse Oximetry (%) (units (unknown) date) 95 unknown) (unknown) (no (unknown) (unknown) Pulse Source (units (u nknown) date) Monitor unknown) (unknown) (no (unknown) (unknown) Reason For Visit (units (unknown) date) unknown) (unknown) (no (unknown) (unknown) Respiration 16 (units (unknown) date) unknown) (unknown) (no (unknown) (unknown) Signed By: (units (unk nown) date) unknown) (unknown) (no (unknown) (unknown) Smoking Status: (units (unknown) date) Never smoker unknown) (unknown) (no (unknown) (unknown) Temp 97.5 F L (units (unknown) date) unknown) (unknown) (no (unknown) (unknown) Temp Source (units (un known) date) Temporal Artery Scan unknown) (unknown) (no (unknown) (unknown) This note may have (units (unknown) date) been all or unknown) partially generated using voice recognition (unknown) (no (unknown) (unknown) Tobacco + Substance (unit s (unknown) date) Use unknown) (unknown) (no (unknown) (unknown) Tobacco Status (units (unknown) date) unknown) (unknown) (no (unknown) (unknown) Tylenol 500 mg PO (units (unknown) date) 06/07/20 [History unknown) Confirmed 04/10/22] (unknown) (no (unknown) (unknown) Valtrex 06/07/20 (units (unknown) date) [History Confirmed unknown) 04/10/22] (unknown) (no (unknown) (unknown) Visit Reasons: (units (unknown) date) Cough, chest unknown) congestion x 2D (unknown) (no (unknown) (unknown) Vitals (units (unkno wn) date) unknown) (unknown) (no (unknown) (unknown) benzonatate 100 mg (units (unknown) date) capsule (Tessalon unknown) Perles) 100 mg PO TID PRN cough #14 caps (unknown) (no (unknown) (unknown) benzonatate 100 mg (units (unknown) date) capsule 100 mg PO unknown) BID PRN cough #20 caps 11/27/21 [Rx (unknown) (no (unknown) (unknown) breathing. (units (unk nown) date) unknown) (unknown) (no (unknown) (unknown) clobetasol 0.05 % (units (unknown) date) topical ointment unknown) topical 06/07/20 [History Confirmed 04/10/22] (unknown) (no (unknown) (unknown) coughing for (units (u nknown) date) several days and has unknown) a h/o asthma. Deep cough starting yesterday. (unknown) (no (unknown) (unknown) cyclosporine 0.05 % (unit s (unknown) date) eye drops in a unknown) dropperette (Restasis) 06/07/20 [History (unknown) (no (unknown) (unknown) days, negative (units (unknown) date) results. . Is unknown) concerned and would like someone to listen to her (unknown) (no (unknown) (unknown) have occurred. If (units (unknown) date) there are any unknown) questions, please contact the Medical Records (unknown) (no (unknown) (unknown) hydroxychloroquine (units (unknown) date) 200 mg tablet unknown) 06/07/20 [History Confirmed 04/10/22] (unknown) (no (unknown) (unknown) lisinopril 20 mg (units (unknown) date) tablet 06/07/20 unknown) [History Confirmed 04/10/22] (unknown) (no (unknown) (unknown) lungs due to (units (u nknown) date) chronic illnesses. unknown) Denies shortness of breath, or difficulty (unknown) (no (unknown) (unknown) may occur. (units (unk nown) date) Occasional unknown) wrong-word or 'sound-alike' substitutions may have (unknown) (no (unknown) (unknown) minocycline 100 mg (units (unknown) date) capsule 06/07/20 unknown) [History Confirmed 04/10/22] (unknown) (no (unknown) (unknown) occurred due to the (unit s (unknown) date) inherent limitations unknown) of voice recognition software. Please (unknown) (no (unknown) (unknown) omeprazole 20 mg (units (unknown) date) capsule,delayed unknown) release 06/07/20 [History Confirmed 04/10/22] (unknown) (no (unknown) (unknown) prednisone 20 mg (units (unknown) date) tablet 20 mg PO unknown) DAILY #5 tabs 06/21/20 [Rx Confirmed 04/10/22] (unknown) (no (unknown) (unknown) read the note (units ( unknown) date) carefully and unknown) recognize, using context, where these substitutions (unknown) (no (unknown) (unknown) software. Although (units (unknown) date) every effort is made unknown) to edit content, real estate consultant errors (unknown) (no (unknown) (unknown) sulfasalazine 500 (units (unknown) date) mg tablet 06/07/20 unknown) [History Confirmed 04/10/22] Result panel 3 (unknown) (no (unknown) (unknown) (no value) (units (unk nown) date) unknown) (unknown) (no (unknown) (unknown) Qualifiers: (units (un known) date) unknown) (unknown) (no (unknown) (unknown) (no value) (units (unk nown) date) unknown) (unknown) (no (unknown) (unknown) (no value) (units (unk nown) date) unknown) (unknown) (no (unknown) (unknown) 04/10/22 (units (unkno wn) date) unknown) (unknown) (no (unknown) (unknown) 04/10/22 1635 (units ( unknown) date) unknown) (unknown) (no (unknown) (unknown) 16:18 (units (unkno wn) date) unknown) (unknown) (no (unknown) (unknown) [facility] (units (unknown) date) Medicine unknown) (unknown) (no (unknown) (unknown) [place] [address] (unit s (unknown) date) unknown) (unknown) (no (unknown) (unknown) Cough type: acute (units (unknown) date) Qualified Code(s): unknown) R05.1 - Acute cough (unknown) (no (unknown) (unknown) Family Practice (units (unknown) date) Office Visit unknown) (unknown) (no (unknown) (unknown) Signed (units (unkno wn) date) unknown) (unknown) (no (unknown) (unknown) (no value) (units (unk nown) date) unknown) (unknown) (no (unknown) (unknown) [id number] (units (unk nown) date) unknown) (unknown) (no (unknown) (unknown) (1) Cough: (units (unk nown) date) unknown) (unknown) (no (unknown) (unknown) 04/10/22 (units (unkno wn) date) unknown) (unknown) (no (unknown) (unknown) 06/21/20 [Rx (units (u nknown) date) Confirmed 04/10/22] unknown) (unknown) (no (unknown) (unknown) 1556 (units (unkno wn) date) unknown) (unknown) (no (unknown) (unknown) Age/Sex: 71 / F (units (unknown) date) Date of Service: unknown) (unknown) (no (unknown) (unknown) Allergies (units (unkn own) date) unknown) (unknown) (no (unknown) (unknown) Assessment + Plan (units (unknown) date) unknown) (unknown) (no (unknown) (unknown) Attending Dr: Yael (unit s (unknown) date) Yuli Graff P.A-C unknown) (unknown) (no (unknown) (unknown) BP 139/79 (units (u nknown) date) unknown) (unknown) (no (unknown) (unknown) Blood Pressure (units (unknown) date) Location Lt unknown) radial (unknown) (no (unknown) (unknown) CARDIOVASCULAR: (units (unknown) date) Denies chest pain, unknown) pressure, palpitations, or edema (unknown) (no (unknown) (unknown) CARDIOVASCULAR: (units (unknown) date) Regular rate and unknown) rhythm without murmurs, gallops, or rubs. (unknown) (no (unknown) (unknown) Chief Complaint (units (unknown) date) unknown) (unknown) (no (unknown) (unknown) Chief Complaint: (units (unknown) date) cough unknown) (unknown) (no (unknown) (unknown) Confirmed 04/10/22] (unit s (unknown) date) unknown) (unknown) (no (unknown) (unknown) Continue to take (units (unknown) date) her inhalers as unknown) prescribed. If she experiences any worsening (unknown) (no (unknown) (unknown) : 1950 (units (unknown) date) Acct:[id number] unknown) (unknown) (no (unknown) (unknown) Dept at (units (unkno wn) date) . unknown) (unknown) (no (unknown) (unknown) Details: (units (unkno wn) date) unknown) (unknown) (no (unknown) (unknown) Documented By: (units (unknown) date) Yael Graff unknown) [place] 04/10/22 (unknown) (no (unknown) (unknown) Exam (units (unkno wn) date) unknown) (unknown) (no (unknown) (unknown) Exam Narrative (units (unknown) date) unknown) (unknown) (no (unknown) (unknown) Exam Narrative: (units (unknown) date) unknown) (unknown) (no (unknown) (unknown) Follow up with (units (unknown) date) primary as needed. unknown) Findings and return precautions discussed (unknown) (no (unknown) (unknown) GASTROINTESTINAL: (units (unknown) date) Denies vomiting, unknown) changes in bowel movements, or abdominal (unknown) (no (unknown) (unknown) GENERAL: (units (unkno wn) date) Well-developed unknown) patient, in mild distress. (unknown) (no (unknown) (unknown) GENERAL: see HPI (units (unknown) date) unknown) (unknown) (no (unknown) (unknown) HEENT: Denies ear (units (unknown) date) pain, vision unknown) changes, sore throat, or difficulty swallowing (unknown) (no (unknown) (unknown) HEENT: PERRLA. EOMs (unit s (unknown) date) intact. Airway unknown) patent. (unknown) (no (unknown) (unknown) HPI (units (unkno wn) date) unknown) (unknown) (no (unknown) (unknown) HPI and exam are (units (unknown) date) not suggestive of a unknown) bacterial etiology at this time. Symptoms (unknown) (no (unknown) (unknown) Intake (units (unkno wn) date) unknown) (unknown) (no (unknown) (unknown) Intake Note: (units (u nknown) date) unknown) (unknown) (no (unknown) (unknown) Intake performed (units (unknown) date) by: Alona Damon unknown) (unknown) (no (unknown) (unknown) Intake- Clincial (units (unknown) date) Staff unknown) (unknown) (no (unknown) (unknown) Just arrived home (units (unknown) date) from vacation. 99 unknown) temp today. 3 covid tests over the last few (unknown) (no (unknown) (unknown) Last Menstural (units (unknown) date) Cycle + Details unknown) (unknown) (no (unknown) (unknown) Loc: [facility] (units (unkno wn) date) unknown) (unknown) (no (unknown) (unknown) Medications (units (un known) date) unknown) (unknown) (no (unknown) (unknown) NEURO: AOx3. (units (u nknown) date) unknown) (unknown) (no (unknown) (unknown) NEUROLOGIC: Denies (units (unknown) date) weakness, dizziness, unknown) headache, numbness, tingling or (unknown) (no (unknown) (unknown) Other Menstrual (units (unknown) date) Period: unknown) Postmenopausal (unknown) (no (unknown) (unknown) Oxygen Delivery (units (unknown) date) Method room air unknown) (unknown) (no (unknown) (unknown) PFSH (units (unkno wn) date) unknown) (unknown) (no (unknown) (unknown) Patient is a (units (u nknown) date) 71-year-old female unknown) presenting with cough and chest congestion for (unknown) (no (unknown) (unknown) Patient presents to (unit s (unknown) date) [facility] with concerns unknown) for cough. Patient states she has been (unknown) (no (unknown) (unknown) Patient: (units (unkno wn) date) Marie,Bebe Yuli unknown) MR#: (unknown) (no (unknown) (unknown) Penicillins Allergy (unit s (unknown) date) (Verified 04/10/22 unknown) 16:00) (unknown) (no (unknown) (unknown) Plan (units (unkno wn) date) unknown) (unknown) (no (unknown) (unknown) Position Sitting (unit s (unknown) date) unknown) (unknown) (no (unknown) (unknown) Pulse 106 H (units (unknown) date) unknown) (unknown) (no (unknown) (unknown) Pulse Oximetry (%) (units (unknown) date) 95 unknown) (unknown) (no (unknown) (unknown) Pulse Source (units (u nknown) date) Monitor unknown) (unknown) (no (unknown) (unknown) RESPIRATORY: Clear (units (unknown) date) to auscultation. unknown) Breath sounds equal bilaterally. No wheezes, (unknown) (no (unknown) (unknown) RESPIRATORY: See (units (unknown) date) HPI unknown) (unknown) (no (unknown) (unknown) ROS (units (unkno wn) date) unknown) (unknown) (no (unknown) (unknown) ROS Narrative (units ( unknown) date) unknown) (unknown) (no (unknown) (unknown) ROS Narrative: (units (unknown) date) unknown) (unknown) (no (unknown) (unknown) Reason For Visit (units (unknown) date) unknown) (unknown) (no (unknown) (unknown) Respiration 16 (units (unknown) date) unknown) (unknown) (no (unknown) (unknown) SKIN: No rash or (units (unknown) date) erythema of visible unknown) areas (unknown) (no (unknown) (unknown) SKIN: No rash, (units (unknown) date) pruritis, or unknown) erythema (unknown) (no (unknown) (unknown) She has had (units (un known) date) multiple negative unknown) at-home COVID test. She has a history of (unknown) (no (unknown) (unknown) Signed By: (units (unk nown) date) <Electronically unknown) signed by Yael Graff> (unknown) (no (unknown) (unknown) Smoking Status: (units (unknown) date) Never smoker unknown) (unknown) (no (unknown) (unknown) Temp 97.5 F L (units (unknown) date) unknown) (unknown) (no (unknown) (unknown) Temp Source (units (un known) date) Temporal Artery Scan unknown) (unknown) (no (unknown) (unknown) This note may have (units (unknown) date) been all or unknown) partially generated using voice recognition (unknown) (no (unknown) (unknown) Tobacco + Substance (unit s (unknown) date) Use unknown) (unknown) (no (unknown) (unknown) Tobacco Status (units (unknown) date) unknown) (unknown) (no (unknown) (unknown) Tylenol 500 mg PO (units (unknown) date) 06/07/20 [History unknown) Confirmed 04/10/22] (unknown) (no (unknown) (unknown) Valtrex 06/07/20 (units (unknown) date) [History Confirmed unknown) 04/10/22] (unknown) (no (unknown) (unknown) Visit Reasons: (units (unknown) date) Cough, chest unknown) congestion x 2D (unknown) (no (unknown) (unknown) Vitals (units (unkno wn) date) unknown) (unknown) (no (unknown) (unknown) are likely due to a (unit s (unknown) date) viral illness. unknown) Encouraged rest, increased fluid intake, (unknown) (no (unknown) (unknown) benzonatate 100 mg (units (unknown) date) capsule (Tessalon unknown) Perles) 100 mg PO TID PRN cough #14 caps (unknown) (no (unknown) (unknown) benzonatate 100 mg (units (unknown) date) capsule 100 mg PO unknown) BID PRN cough #20 caps 11/27/21 [Rx (unknown) (no (unknown) (unknown) breathing. (units (unk nown) date) unknown) (unknown) (no (unknown) (unknown) clobetasol 0.05 % (units (unknown) date) topical ointment unknown) topical 06/07/20 [History Confirmed 04/10/22] (unknown) (no (unknown) (unknown) confusion (units (unkn own) date) unknown) (unknown) (no (unknown) (unknown) coughing for (units (u nknown) date) several days and has unknown) a h/o asthma. Deep cough starting yesterday. (unknown) (no (unknown) (unknown) cyclosporine 0.05 % (unit s (unknown) date) eye drops in a unknown) dropperette (Restasis) 06/07/20 [History (unknown) (no (unknown) (unknown) days, negative (units (unknown) date) results. . Is unknown) concerned and would like someone to listen to her (unknown) (no (unknown) (unknown) have occurred. If (units (unknown) date) there are any unknown) questions, please contact the Medical Records (unknown) (no (unknown) (unknown) hydroxychloroquine (units (unknown) date) 200 mg tablet unknown) 06/07/20 [History Confirmed 04/10/22] (unknown) (no (unknown) (unknown) lisinopril 20 mg (units (unknown) date) tablet 06/07/20 unknown) [History Confirmed 04/10/22] (unknown) (no (unknown) (unknown) lungs due to (units (u nknown) date) chronic illnesses. unknown) Denies shortness of breath, or difficulty (unknown) (no (unknown) (unknown) may occur. (units (unk nown) date) Occasional unknown) wrong-word or 'sound-alike' substitutions may have (unknown) (no (unknown) (unknown) medication. She (units (unknown) date) has a history of unknown) asthma and has been taking her inhalers as (unknown) (no (unknown) (unknown) minocycline 100 mg (units (unknown) date) capsule 06/07/20 unknown) [History Confirmed 04/10/22] (unknown) (no (unknown) (unknown) occurred due to the (unit s (unknown) date) inherent limitations unknown) of voice recognition software. Please (unknown) (no (unknown) (unknown) omeprazole 20 mg (units (unknown) date) capsule,delayed unknown) release 06/07/20 [History Confirmed 04/10/22] (unknown) (no (unknown) (unknown) spiq-kri-ddlscag (units (unknown) date) cold and cough unknown) medication, Tylenol and ibuprofen as needed. (unknown) (no (unknown) (unknown) pain (units (unkno wn) date) unknown) (unknown) (no (unknown) (unknown) pneumonia so she is (units (unknown) date) presenting to get unknown) her lungs listened to to make sure nothing (unknown) (no (unknown) (unknown) prednisone 20 mg (units (unknown) date) tablet 20 mg PO unknown) DAILY #5 tabs 06/21/20 [Rx Confirmed 04/10/22] (unknown) (no (unknown) (unknown) prescribed. She (units (unknown) date) has been treating unknown) symptoms with ibuprofen and Mucinex DM. (unknown) (no (unknown) (unknown) rales, or rhonchi. (units (unknown) date) unknown) (unknown) (no (unknown) (unknown) read the note (units ( unknown) date) carefully and unknown) recognize, using context, where these substitutions (unknown) (no (unknown) (unknown) serious is (units (unk nown) date) occurring. She has unknown) rheumatoid arthritis and takes immunosuppressive (unknown) (no (unknown) (unknown) software. 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 (unknown) (no (unknown) (unknown) sulfasalazine 500 (units (unknown) date) mg tablet 06/07/20 unknown) [History Confirmed 04/10/22] (unknown) (no (unknown) (unknown) symptoms or high (units (unknown) date) fever she should unknown) seek re-evaluation with possible imaging. (unknown) (no (unknown) (unknown) the past 2-3 days. (units (unknown) date) She additionally unknown) reports a fever yesterday. She denies any (unknown) (no (unknown) (unknown) with patient/family (unit s (unknown) date) who verbalized unknown) understanding. Social History date description facility (no date) Never smoked tobacco ([facility] Vital Signs date measurement value units +0000 BP_diastolic BP_diastolic 79 mm[H g] +0000 BP_systolic BP_systolic 139 mm[Hg] +0000 heart_rate heart_rate 106 /min +0000 respiration_rate respiration_rate 16 /min +0000 temperature_metric temperature_metric 36.39 C +0000 temperature_standard temperature_standard 9 7.5 F
[2022-06-13 20:41] LABS: EOSINOPHILS # (MANUAL) 0.3 10^3/uL (0-0.7); LYMPHOCYTES # (MANUAL) 1.2 10^3/uL (1.5-3.5); LYMPHOCYTES % (MANUAL) 17 %; MONOCYTES # (MANUAL) 0.1 10^3/uL (0.0-1.0); NEUTROPHILS # (MANUAL) 3.8 10^3/uL (1.5-6.6); REACTIVE LYMPHS % (MANUAL) 6 %
[2022-06-13 20:42] LABS: DIFFERENTIAL COMMENT MANUAL DIFFERENTIAL; PLATELET ESTIMATE, MANUAL NORMAL (130-450,000) (NORMAL); PLATELET MORPHOLOGY NORMAL APPEARANCE (NORMAL); RBC MORPHOLOGY (MULTIPLE) NORMAL APPEARANCE (NORMAL); WBC MORPHOLOGY (MULTIPLE) NORMAL APPEARANCE (NORMAL)
[2022-06-13 20:46] VITALS: BP 155/88
== END 2022-06-13 20:45 | disposition home or self-care (01) ==
LOC: ED 19:48
DX: T45 Poisoning by, adverse effect of and underdosing of primarily systemic and hematological agents, not elsewhere classified (principal)
CPT/HCPCS: 36415; 80053; 85025; 99282; 99283

== ENCOUNTER 2022-12-09 08:00 | Outpatient (CLI) | payer MEDICARE, OTHER | END 2022-12-09 23:59 | disposition home or self-care (01) | LOC: LAB.N 08:00 | PROVIDERS: ATTEND Nurse Practitioner | DX: Z20.822 Contact with and (suspected) exposure to COVID-19 (principal) | CPT/HCPCS: 87637 ==

== ENCOUNTER 2022-12-12 16:33 | Outpatient (CLI) | payer MEDICARE, OTHER ==
--- NOTE | 2022-12-12 17:26 | XRAY Report ---
PROCEDURE: Chest 2 View X-Ray INDICATIONS: UPPER RESPIRATORY INFECTION TECHNIQUE: 2 views of the chest were acquired. COMPARISON: 08/16/2018. FINDINGS: Surgical changes and devices: None. Lungs and pleura: No pleural effusions or pneumothorax. Lungs are clear. Mediastinum: Mediastinal contours are normal. Heart size is normal. Bones and chest wall: No suspicious bony abnormalities. Soft tissues appear unremarkable. IMPRESSION: No acute cardiopulmonary pathology. Reviewed by: Justin Mckeon MD on 12/12/2022 5:24 PM PDT Approved by: Justin Mckeon MD on 12/12/2022 5:24 PM PDT Station ID: [id number]
== END 2022-12-12 16:34 | disposition home or self-care (01) ==
LOC: DI 16:33
PROVIDERS: ATTEND Nurse Practitioner
DX: J06.9 Acute upper respiratory infection, unspecified (principal)

== ENCOUNTER 2023-03-12 05:34 | Emergency (ER) | payer MEDICARE, OTHER ==
[2023-03-12] MEDS ORDERED: SODIUM CHLORIDE 0.9% 500 ML IV STA (06:01)
--- NOTE | 2023-03-12 06:03 | ED Physician Documentation ---
History of Present Illness - Stated complaint Stated Complaint: GLF/NECK/BACK PX - Chief complaint Chief Complaint: General - Additonal information Additional information: Patient is a 72-year-old female presenting to the emergency department with head, neck, upper back pain. Reports has been being treated for left-sided dental infection for 3 weeks which is caused her to have very little sleep. Yesterday evening She was getting into her bathtub and slipped falling backwards striking her head, upper back, right shoulder and flank. She reports that her was able to help her to her couch yesterday evening but she immediately fell asleep after the event. At this time she mostly has pain associated with the back of her head, neck as well as upper back. 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: Dilation and currettage - Present Medications Home Medications: Ambulatory Orders Medication Instructions Recorded Confirmed Albuterol Sulfate [Proventil Hfa 1 puffs INH DAILY PRN 04/06/16 08/16/18 Inhaler] Adalimumab [Humira] 10 mg ORAL ONCE 05/17/17 08/16/18 Ibuprofen [Ibu] 800 mg PO 08/16/18 Omeprazole Magnesium [Prilosec] 20 mg PO DAILY 08/16/18 08/16/18 Oseltamivir [Tamiflu] 75 mg PO BID 08/16/18 08/16/18 Salmeterol Xinafoate [Serevent 50 mcg INH BID 08/16/18 08/16/18 Diskus] lisinopriL [Lisinopril] 20 mg PO DAILY 08/16/18 08/16/18 - Allergies Allergies/Adverse Reactions: Allergies Allergy/AdvReac Type Severity Reaction Status Date / Time Penicillins Allergy Hives Verified 03/12/23 05:58 - Social History Does the pt smoke?: No Smoking Status: Never smoker Does the pt drink ETOH?: No Does the pt have substance abuse?: No - Immunizations Immunizations are current?: Yes - POLST Patient has POLST: No PD ED PE NORMAL - General General: Alert and oriented X 3 - HEENT HEENT: Other (Superficial abrasion to the tip of the tongue.) - Neck Neck: Supple, no meningeal sign - Cardiac Cardiac: No murmur - Respiratory Respiratory: No respiratory distress - Abdomen Abdomen: Normal bowel sounds - Female Female : Deferred - Back Back: No spinal TTP, Other (General tenderness to the upper back) - Derm Derm: Normal color - Extremities Extremities: No deformity - Neuro Neuro: Alert and oriented X 3, budget engineer 2-12 intact, No motor deficit, Normal speech Results - Vitals Vitals: Oxygen O2 Source Room air - Labs Labs: Laboratory Tests 03/12/23 03/12/23 03/12/23 06:07 06:07 08:38 WBC 5.9 RBC 4.57 Hgb 13.4 Hct 42.9 MCV 93.9 MCH 29.3 MCHC 31.2 L RDW 14.2 Plt Count 280 MPV 8.7 Neut # (Auto) 3.7 Lymph # (Auto) 1.3 L Hart # (Auto) 0.7 Eos # (Auto) 0.2 Baso # (Auto) 0.0 Absolute Nucleated RBC 0.00 Nucleated RBC % 0.0 Sodium 139 Potassium 4.6 Chloride 104 Carbon Dioxide 29 Anion Gap 6.0 BUN 16 Creatinine 0.7 Estimated GFR (MDRD) 83 L Glucose 115 H Calcium 9.5 Total Bilirubin 0.5 AST 22 ALT 15 Alkaline Phosphatase 68 Total Protein 7.8 Albumin 4.0 Globulin 3.8 Albumin/Globulin Ratio 1.1 Lipase 41 Urine Color YELLOW Urine Clarity CLEAR Urine pH 6.5 Ur Specific [place] 1.010 Urine Protein NEGATIVE Urine Glucose (UA) NEGATIVE Urine Ketones NEGATIVE Urine Occult Blood TRACE-INTA Urine Nitrite NEGATIVE Urine Bilirubin NEGATIVE Urine Urobilinogen 0.2 (NORMAL) Ur Leukocyte Esterase NEGATIVE Ur Microscopic Review NOT INDICATED Urine Culture Comments NOT INDICATED PD Medical Decision Making - ED course Complexity details: d/w lean consultant ED course: Patient 72-year-old female presenting to the emergency department with chief complaint of head and neck pain as well as upper back pain after fall that occurred yesterday. She reported a history of insomnia secondary to left jaw pain for recurrent persistent dental infections. She has been following carefully with dentistry. Stated last night that she had fallen out of her bathtub striking her head, left and right flanks. She did report excessive drowsiness which she attributed to her difficulty with sleep as well as possibly loss of consciousness yesterday. Given the uncertain nature of her history I did elect to obtain comprehensive labs and imaging. Labs have returned and are within normal limits at this time. Imaging is pending. I will be signing her out to the oncoming physician, please see their documentation for further detail. Departure - Departure Disposition: 01 Home, Self Care Clinical Impression: Hepatic cyst, Cervical strain, acute Condition: Stable Instructions: ED Sprain Strain Neck Follow-Up: LAYNE Barnes [Provider Group] Comments: Bebe today it looks like you have strained your neck we did not find any evidence of fracture or malalignment on the CT scan of your neck. We did find abnormality to the abdominal CT which showed a large hepatic cyst. This cyst has increased in size from prior visits. It now appears to be making an impression on the inferior vena cava. This may or may not have something to do with the collapse you had last night. My recommendation is to return to see the surgeon about the possibility of deflating the cyst. Discharge Date/Time: 03/12/23 12:23
[2023-03-12 06:15] LABS: BASOPHILS % (AUTO) 0.7 %; EOSINOPHILS # (AUTO) 0.2 10^3/uL (0.0-0.7); EOSINOPHILS % (AUTO) 2.6 %; HCT - HEMATOCRIT 42.9 % (37.0-47.0); HGB - HEMOGLOBIN 13.4 g/dL (12.0-16.0); LYMPHOCYTES # (AUTO) 1.3 10^3/uL (1.5-3.5); LYMPHOCYTES % (AUTO) 21.8 %; MEAN CORPUSCULAR HEMOGLOBIN 29.3 pg (27.0-31.0); MEAN CORPUSCULAR HGB CONC 31.2 g/dL (32.0-36.0); MEAN CORPUSCULAR VOLUME 93.9 fL (81.0-99.0); MEAN PLATELET VOLUME 8.7 fL (7.9-10.8); MONOCYTES # (AUTO) 0.7 10^3/uL (0.0-1.0); MONOCYTES % (AUTO) 11.9 %; NEUTROPHILS # (AUTO) 3.7 10^3/uL (1.5-6.6); NEUTROPHILS % (AUTO) 62.7 %; PLT - PLATELET COUNT 280 10^3/uL (130-450); RED BLOOD COUNT 4.57 10^6/uL (4.20-5.40); RED CELL DISTRIBUTION WIDTH 14.2 % (12.0-15.0); WHITE BLOOD COUNT 5.9 x10^3/uL (4.8-10.8)
[2023-03-12] MEDS ORDERED: iohexoL-300 100 ML VIAL ONE (06:15)
[2023-03-12 06:27] LABS: ALBUMIN/GLOBULIN RATIO 1.1 (1.0-2.2); BILIRUBIN,TOTAL 0.5 mg/dL (0.2-1.0); CALCIUM 9.5 mg/dL (8.5-10.3); CREATININE 0.7 mg/dL (0.4-1.0); POTASSIUM 4.6 mmol/L (3.5-5.0); TOTAL PROTEIN 7.8 g/dL (6.7-8.2)
[2023-03-12] MEDS ORDERED: iohexoL-300 100 ML VIAL IVP ONE (08:24)
[2023-03-12 08:47] LABS: BILIRUBIN,URINE NEGATIVE (NEGATIVE); CLARITY,URINE CLEAR (CLEAR); GLUCOSE, URINE (UA) NEGATIVE (NEGATIVE); KETONES,URINE (UA) NEGATIVE (NEGATIVE); LEUKOCYTE ESTERASE, URINE NEGATIVE (NEGATIVE); NITRITE,URINE NEGATIVE (NEGATIVE); OCCULT BLOOD,URINE TRACE-INTA (NEGATIVE); PH,URINE 6.5 PH (5.0-7.5); PROTEIN,URINE NEGATIVE (NEGATIVE); UROBILINOGEN,URINE 0.2 (NORMAL) E.U./dL (NORMAL)
--- NOTE | 2023-03-12 09:59 | CT Report ---
PROCEDURE: CT abdomen and pelvis with contrast INDICATIONS: Trauma CONTRAST: 100ml omni 300 TECHNIQUE: After the administration of contrast, 5 mm thick sections acquired from the diaphragms to the symphys is. 5 mm thick coronal and sagittal reformats were acquired. For radiation dose reduction, the foll owing was used: automated exposure control, adjustment of mA and/or kV according to patient size. COMPARISON: FINDINGS: Lower thorax: The lung bases are clear. Heart size normal. No hiatal hernia. Liver: Large simple hepatic cyst measures 18.5 x 15.5 cm. Smaller additional hepatic simple cysts not ed. There is mass effect on the right kidney Biliary system: Displaced but otherwise unremarkable gallbladder Pancreas: Unremarkable without mass or inflammation evident. Spleen: Normal in size and density. Adrenals: Normal morphology and density. Reproductive system: Unremarkable as visualized. Urinary system: Normal renal size and attenuation. No renal calculi, hydronephrosis, or solid mass p resent. Urinary bladder unremarkable. Gastrointestinal system: Multiple diverticuli arise from the sigmoid colon. No evidence of bowel obst ruction. Appendix: No findings to suggest acute appendicitis. Peritoneal spaces: No mesenteric or retroperitoneal adenopathy. No free air. No free fluid. Vasculature: The IVC, aorta and iliac vasculature are unremarkable. Musculoskeletal: Normal bone mineralization. Mild degenerative disc disease and arthropathy No acute fractures. Abdominal wall intact without evidence of ventral or inguinal hernias. IMPRESSION: Mild lumbar degenerative disease and arthropathy without fracture throughout the abdomen and pelvis Large 18.5 cm hepatic simple cyst displaces the right kidney and gallbladder. No evidence of solid or jomar injury. Incidental sigmoid diverticulosis without evidence of diverticulitis Reviewed by: Abdirizak Becker MD on 03/12/2023 8:58 AM MICHAEL Approved by: Abdirizak Becker MD on 03/12/2023 8:58 AM AKHODA Station ID: [id number]
--- NOTE | 2023-03-12 10:01 | CT Report ---
PROCEDURE: CT abdomen cervical spine without contrast INDICATIONS: trauma TECHNIQUE: Noncontrast 3 mm thick sections acquired from the skull base to the T4 level. Sagittal and coronal r eformats were then constructed. For radiation dose reduction, the following was used: automated exp osure control, adjustment of mA and/or kV according to patient size. COMPARISON: None. FINDINGS: Image quality: Excellent. Bones: No fractures or dislocations. Visualized superior ribs are intact. Multilevel disc space na rrowing and hypertrophic facet joints of noted in the mid cervical spine. Straightening of normal cer vical lordosis probably related to positioning Soft tissues: Prevertebral soft tissues are normal in thickness. No paravertebral hematomas. No ap ical pneumothoraces. IMPRESSION: Degenerative disc disease and arthropathy without fracture or traumatic malalignment Reviewed by: Abdirizak Becker MD on 03/12/2023 9:00 AM MICHAEL Approved by: Abdirizak Becker MD on 03/12/2023 9:00 AM AKHODA Station ID: [id number]
--- NOTE | 2023-03-12 10:03 | CT Report ---
PROCEDURE: CT chest with contrast INDICATIONS: trauma CONTRAST: 100ml omni 300 TECHNIQUE: After the administration of intravenous contrast, 1 mm axial images were acquired from the pulmonary apices through the posterior costophrenic angles. Axial 5 mm soft tissue kernel reconstructions were performed as well as 8 mm axial MIP and coronal and sagittal 5 mm reformations. For radiation dose reduction, the following was used: automated exposure control, adjustment of mA and/or kV according to patient size. COMPARISON: None. FINDINGS: Image quality: Excellent. Lungs and pleura: No consolidation. No pleural effusions. No pneumothorax. No suspicious pulmonary n odules which require follow up. Focal scarring noted in the right lung apex Mediastinum: Heart size is normal. No pericardial effusion. No large vessel abnormality. No mediastin al adenopathy by size criteria. Chest wall and lower neck: Thyroid is unremarkable. No axillary or supraclavicular adenopathy by size . Bones: No aggressive osseous abnormality. IMPRESSION: Unremarkable CT of the chest without fracture or pneumothorax. Reviewed by: Abdirizak Becker MD on 03/12/2023 9:02 AM MICHAEL Approved by: Abdirizak Becker MD on 03/12/2023 9:02 AM MICHAEL Station ID: [id number]
--- NOTE | 2023-03-12 10:11 | ED Physician Documentation ---
ED Addendum - Addendum Addendum: 03/12/23 10:10 Impression: Degenerative disc disease and arthropathy without fracture or traumatic malalignment. 03/12/23 10:10 Impression: Mild lumbar degenerative disease and arthropathy without fracture throughout the abdomen and pelvis. Large 18.5 cm hepatic simple cyst displaces the right kidney and gallbladder. No evidence of solid organ injury. Incidental sigmoid diverticulosis without evidence of diverticulitis. 03/12/23 10:10 Impression: Unremarkable CT of the chest without fracture or pneumothorax. 03/12/23 19:27 Bebe Varela is a 72-year-old female who was left in my care by Dr. Mckeon at shift change. She apparently, last night, had a fall in her shower and fell out of the shower striking her upper back against a hollow core door followed by her head. She did not have loss of consciousness associated with this. She is complaining of head neck and upper back pain. Dr. Mckeon had ordered CT of the Head neck chest and abdomen. When I evaluated the patient I found she was a bit sore to her upper back and neck but appeared to be without neurodeficit or hemodynamic compromise. I was concerned with the reason for the patient's fall and interrogated her inferior vena cava with POCUS and found that she was mildly dehydrated and administered saline. When I was evaluating the IVC I found a large fluid-filled mass that appeared to abut against the IVC and appeared to have some interaction with it. CT scan showed a marked increase in the patient's hepatic cyst size since 2016 and the cyst does appear to abut the IVC and make an indent into the IVC. My concern was for the possibility of IVC obstruction even intermittently causing a sudden decrease in blood supply and potential syncope and collapse. The patient did not know why she fell. She could not specifically detail this. There may be a lapse of memory. I shared my findings with the patient in detail and asked her to follow-up with her surgeon who has evaluated her previously for draining of her cysts. Her largest cyst today is 18-1/2 cm. The patient believes that she can see this when she looks down while she was showering. 03/12/23 19:28 03/12/23 19:32 03/12/23 19:36 Impression: Acute cervical strain, hepatic cyst causing symptoms, dehydration Plan: Patient was discharged to home after receiving a liter of saline here in the emergency department and she was instructed to follow-up with her surgeon who has previously evaluated her for removal of her cyst. Symptoms of the cyst may be present and may cause urgent for nonurgent symptoms related to obstruction of the inferior vena cava.
--- NOTE | 2023-03-12 10:21 | CT Report ---
PROCEDURE: CT brain without contrast INDICATIONS: Trauma TECHNIQUE: Noncontrast 4.5 mm thick angled axial sections acquired from the foramen magnum to the vertex. For r adiation dose reduction, the following was used: automated exposure control, adjustment of mA and/or kV according to patient size. COMPARISON: None. FINDINGS: Image quality: Excellent. CSF spaces: Basal cisterns are patent. No extra-axial fluid collections. Ventricles are normal in size and shape. Brain: No midline shift. No intracranial masses or hemorrhage. Balbuena-white matter interface is norm al. Skull and face: Calvarium and visualized facial bones are intact, without suspicious lesions. Sinuses: Visualized sinuses and mastoids are clear. IMPRESSION: Normal CT of the brain Reviewed by: Abdirizak Becker MD on 03/12/2023 9:19 AM MICHAEL Approved by: Abdirizak Becker MD on 03/12/2023 9:19 AM MICHAEL Station ID: [id number]
[2023-03-12 11:55] VITALS: BP 155/87
== END 2023-03-12 12:23 | disposition home or self-care (01) ==
LOC: ED 05:34
DX: K76.89 Other specified diseases of liver (principal); S16.1XXA Strain of muscle, fascia and tendon at neck level, initial encounter; W18.2XXA Fall in (into) shower or empty bathtub, initial encounter; Z79.899 Other long term (current) drug therapy; Z79.51 Long term (current) use of inhaled steroids
CPT/HCPCS: 36415; 70450; 71260; 72125; 74177; 80053; 81003; 83690; 85025; 96360; 96361; 99284; Q9967; 81001; 87086

== ENCOUNTER 2023-06-06 09:38 | Outpatient (CLI) | payer MEDICARE, OTHER | END 2023-06-06 09:39 | disposition home or self-care (01) | LOC: RT 09:38 | PROVIDERS: ATTEND Nurse Practitioner Family | DX: J45.909 Unspecified asthma, uncomplicated (principal) | CPT/HCPCS: 94060 ==

== ENCOUNTER 2023-06-10 21:32 | Emergency (ER) | payer MEDICARE, OTHER ==
--- NOTE | 2023-06-10 22:00 | XRAY Report ---
PROCEDURE: Chest 1 View X-Ray INDICATIONS: Chest pain TECHNIQUE: One view of the chest was acquired. COMPARISON: Similar chest plain film 08/16/2018 reviewed. FINDINGS: Surgical changes and devices: None. Lungs and pleura: No pleural effusions or pneumothorax. Lungs are clear. Mediastinum: Mediastinal contours appear normal. Heart size is normal. Bones and chest wall: No suspicious bony lesions. Overlying soft tissues appear unremarkable. IMPRESSION: No acute cardiopulmonary process. Reviewed by: Casper Calles MD on 06/10/2023 9:59 PM PDT Approved by: Casper Calles MD on 06/10/2023 9:59 PM PDT Station ID: [id number]
[2023-06-10 22:11] LABS: BASOPHILS % (AUTO) 0.7 %; EOSINOPHILS # (AUTO) 0.2 10^3/uL (0.0-0.7); HCT - HEMATOCRIT 42.9 % (37.0-47.0); HGB - HEMOGLOBIN 13.3 g/dL (12.0-16.0); LYMPHOCYTES # (AUTO) 1.6 10^3/uL (1.5-3.5); LYMPHOCYTES % (AUTO) 27.1 %; MEAN CORPUSCULAR HEMOGLOBIN 29.9 pg (27.0-31.0); MEAN CORPUSCULAR VOLUME 96.4 fL (81.0-99.0); MEAN PLATELET VOLUME 8.6 fL (7.9-10.8); MONOCYTES # (AUTO) 0.9 10^3/uL (0.0-1.0); MONOCYTES % (AUTO) 14.7 %; NEUTROPHILS # (AUTO) 3.2 10^3/uL (1.5-6.6); NEUTROPHILS % (AUTO) 54.3 %; PLT - PLATELET COUNT 299 10^3/uL (130-450); RED BLOOD COUNT 4.45 10^6/uL (4.20-5.40); RED CELL DISTRIBUTION WIDTH 13.2 % (12.0-15.0); WHITE BLOOD COUNT 5.9 x10^3/uL (4.8-10.8)
[2023-06-10] MEDS ORDERED: SODIUM CHLORIDE 0.9% 1,000 ML IV STA (22:15)
--- NOTE | 2023-06-10 22:16 | ED Physician Documentation ---
History of Present Illness - Stated complaint Stated Complaint: HIGH HEART RATE - Chief complaint Chief Complaint: Cardiac - History obtained from History obtained from: Patient, Family - History of Present Illness Timing: Prior to arrival - Additonal information Additional information: 72-year-old female with history of rheumatoid arthritis on methotrexate, pl aquenil Presents by private vehicle from home for elevated heart rate. Patient states that she was at home cleaning her kitchen when she noticed a tightness sensation in her neck. She has an shaina on her phone that monitors her vitals and it told her that her heart rate was greatly elevated. She attempted to rest at home however her heart rate remained elevated and she presented for evaluation. Patient states that she monitors her vitals daily and has never had a heart rate this high. She states that her resting heart rate is usually between 90 to 100 bpm. In triage patient's heart rate was 140s to 150s Review of Systems Constitutional: denies: Fever, Chills Cardiac: reports: Other (neck tightness). denies: Chest pain / pressure, Palpitations, Calf pain Respiratory: denies: Dyspnea, Cough, Wheezing GI: denies: Abdominal Pain, Abdominal Swelling, Nausea, Vomiting, Constipation, Diarrhea : denies: Dysuria, Frequency Skin: denies: Rash, Lesions, Abrasion (s) Musculoskeletal: reports: Neck pain ("tightness"). 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: Other : Kidney stones Psych: Anxiety Musculoskeletal: Rheumatoid arthritis - Past Surgical History Past Surgical History: Yes /FARM APPRAISER: Dilation and currettage - Present Medications Home Medications: Ambulatory Orders Medication Instructions Recorded Confirmed Albuterol Sulfate [Proventil Hfa 1 puffs INH DAILY PRN 04/06/16 06/10/23 Inhaler] Cyclosporine [Restasis Multidose] 5.5 ml OP DAILY 06/10/23 06/10/23 Fluticasone 110 Mcg [Flovent] 1 puffs INH BID 06/10/23 06/10/23 Folic Acid 1 mg PO DAILY 06/10/23 06/10/23 Hydroxychloroquine [Plaquenil] 400 mg PO DAILY 06/10/23 06/10/23 Losartan Potassium 25 mg PO DAILY 06/10/23 06/10/23 Methotrexate [Methotrexate Sodium] 6 tab PO ONCE 06/10/23 06/10/23 Apixaban [Eliquis] 5 mg PO BID #60 tablet 06/11/23 Metoprolol Tartrate [Lopressor] 25 mg PO BID #60 tablet 06/11/23 - Allergies Allergies/Adverse Reactions: Allergies Allergy/AdvReac Type Severity Reaction Status Date / Time Penicillins Allergy Hives Verified 06/10/23 21:36 - Social History Does the pt smoke?: No Smoking Status: Never smoker Does the pt drink ETOH?: No Does the pt have substance abuse?: No - Immunizations Immunizations are current?: Yes - POLST Patient has POLST: No PD ED PE NORMAL - Vitals Vital signs reviewed: Yes - General General: Alert and oriented X 3, No acute distress, Well developed/nourished - HEENT HEENT: Atraumatic - Neck Neck: Supple, no meningeal sign, No bony TTP - Cardiac Cardiac: No murmur, Strong equal pulses, Other (tachycardia) - Abdomen Abdomen: Soft, Non tender, Non distended - Back Back: No CVA TTP, No spinal TTP - Derm Derm: Normal color, Warm and dry, No rash - Extremities Extremities: No deformity, No tenderness to palpate, Normal ROM s pain, No edema - Neuro Neuro: Alert and oriented X 3, double end sewer 2-12 intact, No motor deficit, Normal speech - Psych Psych: Normal mood, Normal affect Results - Vitals Vitals: Vital Signs - 24 hr 06/10/23 06/10/23 06/10/23 21:36 22:10 22:30 Temperature 36.6 C Heart Rate 146 H 99 93 Respiratory 16 16 17 Rate Blood Pressure 150/90 H 166/88 H 154/87 H O2 Saturation 98 100 100 06/10/23 06/10/23 06/10/23 23:00 23:30 23:36 Temperature Heart Rate 88 91 Respiratory 15 15 Rate Blood Pressure 160/82 H 172/102 H 162/82 H O2 Saturation 100 100 06/11/23 06/11/23 00:00 00:24 Temperature Heart Rate 90 90 Respiratory 16 16 Rate Blood Pressure 155/89 H 155/89 H O2 Saturation 100 100 Oxygen O2 Source Room air - Labs Labs: Laboratory Tests 06/10/23 06/10/23 06/10/23 22:03 22:03 22:03 WBC 5.9 RBC 4.45 Hgb 13.3 Hct 42.9 MCV 96.4 MCH 29.9 MCHC 31.0 L RDW 13.2 Plt Count 299 MPV 8.6 Neut # (Auto) 3.2 Lymph # (Auto) 1.6 [place] # (Auto) 0.9 Eos # (Auto) 0.2 Baso # (Auto) 0.0 Absolute Nucleated RBC 0.00 Nucleated RBC % 0.0 Sodium 141 Potassium 3.9 Chloride 105 Carbon Dioxide 29 Anion Gap 7.0 BUN 14 Creatinine 1.0 Estimated GFR (MDRD) 55 L Glucose 94 Calcium 9.1 Total Bilirubin 0.2 AST 21 ALT 15 Alkaline Phosphatase 72 Troponin I High Sens 16.3 H* Total Protein 7.2 Albumin 4.0 Globulin 3.2 Albumin/Globulin Ratio 1.3 Lipase 42 Urine Color YELLOW Urine Clarity CLEAR Urine pH 7.0 Ur Specific [place] <=1.005 Urine Protein NEGATIVE Urine Glucose (UA) NEGATIVE Urine Ketones NEGATIVE Urine Occult Blood NEGATIVE Urine Nitrite NEGATIVE Urine Bilirubin NEGATIVE Urine Urobilinogen 0.2 (NORMAL) Ur Leukocyte Esterase TRACE H Urine RBC 0-5 Urine WBC 0-3 Ur Squamous Epith Cells RARE Squamous Urine Bacteria Rare Ur Microscopic Review INDICATED Urine Culture Comments INDICATED PD Medical Decision Making - ED course Complexity details: reviewed results, re-evaluated patient, considered d ifferential, d/w patient, d/w family ED course: Patient presenting for elevated heart rate at home. Found to be tachycardic at a rate of 140 to 150 bpm. This is highly suspicious for atrial fibrillation with RVR. Patient denies history of heart problems or cardiac disease. Blood pressure stable, patient in no acute distress. While I was examining the patient in the ED bed her heart rate self converted without any interventions to her reported normal heart rate of 90 bpm. Repeat EKG shows sinus rhythm with no acute ischemic findings. Blood pressure remained stable. Patient will be continued on pilot fuel engineer, will obtain cardiac work-up and will observe for any changes in heart rate. Laboratory work is reviewed, troponin reviewed. Patient has remained on pilot fuel engineer, heart rate has remained within patient's stated normal range. Based on patient presentation, reported symptoms, EKG patient is likely having paroxysmal atrial fibrillation. [id number] reviewed, due to patient's history of hypertension and age it is recommended to start on anticoagulants. Patient counseled on results of all lab and imaging findings. It was explained to the patient that she may be experiencing episodes of atrial fibrillation and due to her age and risk factors it is recommended she start anticoagulation. In addition we will start patient on low-dose of metoprolol. Cardiology follow-up highly recommended. Strict ED return precautions discussed with patient at bedside. Departure - Departure Disposition: 01 Home, Self Care Clinical Impression: Paroxysmal atrial fibrillation Condition: Stable Instructions: Atrial Fibrillation Dc Follow-Up: Gina Martínez MD [Provider Admit Priv/Credential] - [facility] - Card [Provider Group] Prescriptions: Apixaban [Eliquis] 5 mg PO BID #60 tablet Metoprolol Tartrate [Lopressor] 25 mg PO BID #60 tablet Forms: PCP List Discharge Date/Time: 06/11/23 00:25
[2023-06-10 22:19] LABS: BILIRUBIN,URINE NEGATIVE (NEGATIVE); GLUCOSE, URINE (UA) NEGATIVE (NEGATIVE); KETONES,URINE (UA) NEGATIVE (NEGATIVE); LEUKOCYTE ESTERASE, URINE TRACE (NEGATIVE); NITRITE,URINE NEGATIVE (NEGATIVE); OCCULT BLOOD,URINE NEGATIVE (NEGATIVE); PROTEIN,URINE NEGATIVE (NEGATIVE); UROBILINOGEN,URINE 0.2 (NORMAL) E.U./dL (NORMAL)
[2023-06-10 22:20] VITALS: O2SAT 100
[2023-06-10 22:21] LABS: CLARITY,URINE CLEAR (CLEAR)
[2023-06-10 22:27] LABS: ALBUMIN/GLOBULIN RATIO 1.3 (1.0-2.2); BILIRUBIN,TOTAL 0.2 mg/dL (0.2-1.0); CALCIUM 9.1 mg/dL (8.5-10.3); POTASSIUM 3.9 mmol/L (3.5-5.0); TOTAL PROTEIN 7.2 g/dL (6.7-8.2)
[2023-06-10 22:29] LABS: BACTERIA,URINE Rare /HPF (None Seen); RBC,URINE 0-5 /HPF (0-5); SQUAMOUS EPITHELIAL CELL,UR RARE Squamous (<= Few); WBC,URINE 0-3 /HPF (0-5)
[2023-06-10 22:55] LABS: TROPONIN I HIGH SENSITIVITY 16.3 ng/L (2.3-14.8)
[2023-06-11 00:13] VITALS: BP 155/89
--- NOTE | 2023-06-13 11:42 | ED Physician Documentation ---
ED Addendum - Addendum Addendum: 06/13/23 11:41 Nursing staff presented to dc urine culture results from 10 May. Patient was seen in the emergency department for A-fib with RVR. At the time of the ED visit per the previous provider's note there was no indication of abdominal pain or urinary symptoms. Her urine at that time was not consistent with infection. However subsequent culture grew 10-50K CFU of Enterococcus faecalis. Given the patient's age lack of abdominal pain or urinary symptoms I do not feel that treatment of this isolate is indicated. 06/13/23 11:42
== END 2023-06-11 00:25 | disposition home or self-care (01) ==
LOC: ED 21:32
DX: I48.0 Paroxysmal atrial fibrillation (principal); I10 Essential (primary) hypertension
CPT/HCPCS: 36415; 80053; 81001; 81003; 83690; 84484; 85025; 87077; 87086; 87181; 93005; 99283; 99284

== ENCOUNTER 2023-06-12 18:52 | Emergency (ER) | payer MEDICARE, OTHER ==
[2023-06-12 21:08] LABS: BASOPHILS % (AUTO) 0.5 %; EOSINOPHILS # (AUTO) 0.2 10^3/uL (0.0-0.7); EOSINOPHILS % (AUTO) 3.4 %; HCT - HEMATOCRIT 44.7 % (37.0-47.0); HGB - HEMOGLOBIN 13.8 g/dL (12.0-16.0); LYMPHOCYTES # (AUTO) 1.4 10^3/uL (1.5-3.5); LYMPHOCYTES % (AUTO) 24.4 %; MEAN CORPUSCULAR HEMOGLOBIN 30.1 pg (27.0-31.0); MEAN CORPUSCULAR HGB CONC 30.9 g/dL (32.0-36.0); MEAN CORPUSCULAR VOLUME 97.4 fL (81.0-99.0); MONOCYTES # (AUTO) 0.8 10^3/uL (0.0-1.0); MONOCYTES % (AUTO) 12.9 %; NEUTROPHILS # (AUTO) 3.5 10^3/uL (1.5-6.6); NEUTROPHILS % (AUTO) 58.6 %; PLT - PLATELET COUNT 322 10^3/uL (130-450); RED BLOOD COUNT 4.59 10^6/uL (4.20-5.40); RED CELL DISTRIBUTION WIDTH 13.2 % (12.0-15.0); WHITE BLOOD COUNT 5.9 x10^3/uL (4.8-10.8)
[2023-06-12 21:20] LABS: ALBUMIN 4.2 g/dL (3.2-5.5); ALBUMIN/GLOBULIN RATIO 1.3 (1.0-2.2); BILIRUBIN,TOTAL 0.4 mg/dL (0.2-1.0); CREATININE 0.8 mg/dL (0.4-1.0); TOTAL PROTEIN 7.5 g/dL (6.7-8.2)
--- NOTE | 2023-06-12 21:23 | ED Physician Documentation ---
History of Present Illness - Stated complaint Stated Complaint: HIGH HEART RATE - Chief complaint Chief Complaint: Cardiac - History obtained from History obtained from: Patient - Additonal information Additional information: 72-year-old female with history of rheumatoid arthritis presents for elevated heart rate at home. Patient was seen by myself several days ago for same complaint, she was discharged with presumptive diagnosis of paroxysmal atrial fibrillation and prescriptions for metoprolol and Eliquis sent to pharmacy. Patient did not waste picker medications until earlier this afternoon due to insurance issues. She laid down to take a nap and woke up with the sensation of anxiety and throat tightness. She measured her vitals and her heart rate was in between 150 to 160 bpm. Patient took a dose of her metoprolol prior to arrival. She states that by the time she got to the emergency department her heart rate had come down to normal limits. She currently feels asymptomatic. She has scheduled cardiology follow-up tomorrow for her follow-up appointment from her previous ER visit. Review of Systems Constitutional: denies: Fever, Chills Cardiac: reports: Palpitations. 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: Other : Kidney stones Psych: Anxiety Musculoskeletal: Rheumatoid arthritis - Past Surgical History Past Surgical History: Yes /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: Dilation and currettage - Present Medications Home Medications: Ambulatory Orders Medication Instructions Recorded Confirmed Albuterol Sulfate [Proventil Hfa 1 puffs INH DAILY PRN 04/06/16 06/10/23 Inhaler] Cyclosporine [Restasis Multidose] 5.5 ml OP DAILY 06/10/23 06/10/23 Fluticasone 110 Mcg [Flovent] 1 puffs INH BID 06/10/23 06/10/23 Folic Acid 1 mg PO DAILY 06/10/23 06/10/23 Hydroxychloroquine [Plaquenil] 400 mg PO DAILY 06/10/23 06/10/23 Losartan Potassium 25 mg PO DAILY 06/10/23 06/10/23 Methotrexate [Methotrexate Sodium] 6 tab PO ONCE 06/10/23 06/10/23 Apixaban [Eliquis] 5 mg PO BID #60 tablet 06/11/23 Metoprolol Tartrate [Lopressor] 25 mg PO BID #60 tablet 06/11/23 - Allergies Allergies/Adverse Reactions: Allergies Allergy/AdvReac Type Severity Reaction Status Date / Time Penicillins Allergy Hives Verified 06/10/23 21:36 - Social History Does the pt smoke?: No Smoking Status: Never smoker Does the pt drink ETOH?: No Does the pt have substance abuse?: No - Immunizations Immunizations are current?: Yes - POLST Patient has POLST: No PD ED PE NORMAL - Vitals Vital signs reviewed: Yes - General General: Alert and oriented X 3, No acute distress, Well developed/nourished - HEENT HEENT: Atraumatic - Neck Neck: Supple, no meningeal sign - Cardiac Cardiac: RRR, Strong equal pulses - Respiratory Respiratory: No respiratory distress, Clear bilaterally - Abdomen Abdomen: Soft, Non tender, Non distended - Derm Derm: Normal color, Warm and dry, No rash - Extremities Extremities: No deformity, No tenderness to palpate, Normal ROM s pain, No edema - Neuro Neuro: Alert and oriented X 3, amplifier mechanic 2-12 intact, No motor deficit, Normal speech - Psych Psych: Normal mood, Normal affect Results - Vitals Vitals: Vital Signs - 24 hr 06/12/23 06/12/23 06/12/23 19:01 21:03 22:17 Temperature 37 C Heart Rate 118 H 81 75 Respiratory 16 20 18 Rate Blood Pressure 146/99 H 157/87 H 160/78 H O2 Saturation 98 97 98 Oxygen O2 Source Room air - Labs Labs: Laboratory Tests 06/12/23 06/12/23 21:03 21:03 WBC 5.9 RBC 4.59 Hgb 13.8 Hct 44.7 MCV 97.4 MCH 30.1 MCHC 30.9 L RDW 13.2 Plt Count 322 MPV 9.0 Neut # (Auto) 3.5 Lymph # (Auto) 1.4 L [place] # (Auto) 0.8 Eos # (Auto) 0.2 Baso # (Auto) 0.0 Absolute Nucleated RBC 0.00 Nucleated RBC % 0.0 Sodium 139 Potassium 4.0 Chloride 101 Carbon Dioxide 27 Anion Gap 11.0 BUN 12 Creatinine 0.8 Estimated GFR (MDRD) 71 L Glucose 88 Calcium 9.3 Total Bilirubin 0.4 AST 24 ALT 17 Alkaline Phosphatase 69 Troponin I High Sens 8.1 Total Protein 7.5 Albumin 4.2 Globulin 3.3 Albumin/Globulin Ratio 1.3 TSH 4.10 PD Medical Decision Making - ED course Complexity details: reviewed old records, reviewed results, re-evaluated patient, considered differential, d/w patient ED course: Episode of elevated heart rate earlier this evening. Patient has presumptive diagnosis of atrial fibrillation and has only just taken her first dose of metoprolol. When patient initially checked in the emergency department her heart rate was 120 bpm, however by the time she was placed in an ER bed her heart rate had decreased to 80 bpm. EKG shows sinus rhythm without concerning findings. Repeat laboratory work shows no acute changes. Patient remained asymptomatic while in the emergency department. She has medications at home to take for her heart rate and has scheduled cardiology follow-up within the next 24 hours. Patient advised of lab results. Patient asymptomatic with normal vital signs at time of discharge. Departure - Departure Disposition: 01 Home, Self Care Clinical Impression: Tachycardia Condition: Stable Instructions: Tachycardia Forms: PCP List Discharge Date/Time: 06/12/23 22:20
[2023-06-12 21:27] LABS: TROPONIN I HIGH SENSITIVITY 8.1 ng/L (2.3-14.8)
[2023-06-12 21:34] LABS: CALCIUM 9.3 mg/dL (8.5-10.3)
[2023-06-12 21:37] LABS: THYROID STIMULATING HORMONE 4.1 uIU/mL (0.34-5.60)
[2023-06-12 22:23] VITALS: BP 160/78; O2SAT 98
== END 2023-06-12 22:20 | disposition home or self-care (01) ==
LOC: ED 18:52
DX: R00.0 Tachycardia, unspecified (principal)
CPT/HCPCS: 36415; 80053; 84443; 84484; 85025; 93005; 99283; 99284

== ENCOUNTER 2023-06-26 17:05 | Outpatient (CLI) | payer MEDICARE, OTHER ==
--- NOTE | 2023-06-27 12:39 | XRAY Report ---
PROCEDURE: Chest 2 View X-Ray INDICATIONS: COUGH,UNSPECIFIED TECHNIQUE: 2 views of the chest were acquired. 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 Lungs are clear. Mediastinum: Mediastinal contours appear normal. Heart size normal. Bones and chest wall: No suspicious bony lesions. Overlying soft tissues appear unremarkable. IMPRESSION: No acute cardiopulmonary process. No focal consolidation. Reviewed by: Severo Bailey MD on 06/27/2023 12:38 PM PDT Approved by: Severo Bailey MD on 06/27/2023 12:38 PM PDT Station ID: [id number]
== END 2023-06-26 17:06 | disposition home or self-care (01) ==
LOC: DI 17:05
PROVIDERS: ATTEND Registered Nurse
DX: U07.1 COVID-19 (principal)

== ENCOUNTER 2023-09-01 11:08 | Outpatient (CLI) | payer MEDICARE, OTHER ==
--- NOTE | 2023-09-01 13:44 | XRAY Report ---
PROCEDURE: Chest 2 View X-Ray INDICATIONS: UNSPECIFIED ACUTE UPPER RESPIRATORY INFECTION TECHNIQUE: 2 views of the chest were acquired. COMPARISON: None. FINDINGS: Surgical changes and devices: None. Lungs and pleura: No pleural effusions or pneumothorax. Lungs are clear. Mediastinum: Mediastinal contours appear normal. Heart size is normal. Bones and chest wall: No suspicious bony lesions. Overlying soft tissues appear unremarkable. IMPRESSION: No acute cardiopulmonary process. Reviewed by: Corey Rosas on 09/01/2023 12:42 PM [facility] Approved by: Corey Rosas on 09/01/2023 12:42 PM [facility] Station ID: [id number]
== END 2023-09-01 11:09 | disposition home or self-care (01) ==
LOC: LAB.N 11:08 → DI.N 11:09
PROVIDERS: ATTEND Nurse Practitioner
DX: J06.9 Acute upper respiratory infection, unspecified (principal)

== ENCOUNTER 2023-11-18 12:28 | Outpatient (CLI) | payer MEDICARE, OTHER ==
[2023-11-18 19:34] LABS: BASOPHILS % (AUTO) 0.6 %; EOSINOPHILS # (AUTO) 0.2 10^3/uL (0.0-0.7); EOSINOPHILS % (AUTO) 3.4 %; HCT - HEMATOCRIT 43.2 % (37.0-47.0); HGB - HEMOGLOBIN 13.2 g/dL (12.0-16.0); LYMPHOCYTES # (AUTO) 1.8 10^3/uL (1.5-3.5); LYMPHOCYTES % (AUTO) 36.1 %; MEAN CORPUSCULAR HEMOGLOBIN 30.1 pg (27.0-31.0); MEAN CORPUSCULAR HGB CONC 30.6 g/dL (32.0-36.0); MEAN CORPUSCULAR VOLUME 98.4 fL (81.0-99.0); MEAN PLATELET VOLUME 9.2 fL (7.9-10.8); MONOCYTES # (AUTO) 0.5 10^3/uL (0.0-1.0); MONOCYTES % (AUTO) 9.8 %; NEUTROPHILS # (AUTO) 2.5 10^3/uL (1.5-6.6); NEUTROPHILS % (AUTO) 49.9 %; PLT - PLATELET COUNT 311 10^3/uL (130-450); RED BLOOD COUNT 4.39 10^6/uL (4.20-5.40); RED CELL DISTRIBUTION WIDTH 13.5 % (12.0-15.0)
[2023-11-18 19:37] LABS: ALBUMIN 4.3 g/dL (3.2-5.5); ALBUMIN/GLOBULIN RATIO 1.4 (1.0-2.2); ALKALINE PHOSPHATASE 67 IU/L (42-121); ALT ALANINE AMINOTRANSFERASE 16 IU/L (10-60); AST ASPARTATE AMINOTRANSFERASE 20 IU/L (10-42); BILIRUBIN,TOTAL 0.4 mg/dL (0.2-1.0); BUN - BLOOD UREA NITROGEN 15 mg/dL (6-20); CALCIUM 9.4 mg/dL (8.5-10.3); CARBON DIOXIDE - CO2 31 mmol/L (21-32); CHLORIDE 102 mmol/L (101-111); CREATININE 0.7 mg/dL (0.6-1.3); CRP - C-REACTIVE PROTEIN < 0.5 mg/dL (<0.5); GFR - MDRD 82 (>89); GLUCOSE 119 mg/dL (74-104); POTASSIUM 4.4 mmol/L (3.5-4.5); SODIUM 138 mmol/L (135-145); TOTAL PROTEIN 7.3 g/dL (6.4-8.9)
== END 2023-11-18 12:29 | disposition home or self-care (01) ==
LOC: LAB.N 12:28
PROVIDERS: ATTEND Internal Medicine Rheumatology
DX: M05.80 Other rheumatoid arthritis with rheumatoid factor of unspecified site (principal)
CPT/HCPCS: 36415; 80053; 85025; 85651; 86140

== ENCOUNTER 2024-04-01 08:00 | Outpatient (CLI) | payer MEDICARE, OTHER | END 2024-04-01 23:59 | disposition home or self-care (01) | LOC: LAB.N 08:00 | PROVIDERS: ATTEND Physician Assistant Medical | DX: R53.1 Weakness (principal) ==